=== PATIENT | female | born 1950 | race Caucasian/White ===

== ENCOUNTER 2017-08-30 14:17 | Inpatient (IN) ==
[2017-08-30 15:24] LABS: Basophils % 0.4 %; Eosinophils # 0.1 K/mcL (0.0-0.6); Eosinophils % 1.4 %; Hemoglobin 14.4 g/dL (11.5-15.4); Immature Granulocytes % 0.4 % (0-4); Immature Platelets 4.6 % (1.1-6.1); Lymphocytes # 2.8 K/mcL (0.6-4.6); Lymphocytes % 38.6 %; Mean Corpuscular Hemoglobin 29.7 pg (28.0-33.3); Mean Corpuscular Volume 92.8 fL (83.0-100.0); Mean Platelet Volume 10.7 fL (9.4-12.4); Monocytes # 0.5 K/mcL (0.0-1.3); Monocytes % 7.3 %; Neutrophils # 3.8 K/mcL (1.6-8.9); Platelet Count 269 K/mcL (140-400); Red Blood Count 4.85 M/mcL (3.82-4.97); Red Cell Distribution Width 12.9 % (11.5-14.5); Segmented Neutrophils % 51.9 %
[2017-08-30 15:35] LABS: Calcium 10.3 mg/dL (8.6-10.8); Potassium 4.8 mEq/L (3.5-4.5)
[2017-08-30] MEDS ORDERED: Ondansetron 4 MG/2 ML VIAL IVP ONE (16:06)
[2017-08-30] MEDS ORDERED: Aspirin 325 MG TABLET PO ONE (17:24)
--- NOTE | 2017-08-30 18:17 | Emergency Department Note ---
Disposition Clinical Impression: Dizziness, CRISTIAN (acute kidney injury), Dehydration UTI (urinary tract infection) Qualifiers: Urinary tract infection type: acute cystitis Hematuria presence: without hematuria Qualified Code(s): N30.00 - Acute cystitis without hematuria Disposition: Admitted As Inpatient Condition: Good Time of Disposition: 18:59 Dizziness HPI - General Chief Complaint: ED Dizziness Stated Complaint: dizziness Time Seen by Provider: 08/30/17 15:22 Source: patient Mode of arrival: ambulatory Limitations: no limitations Nursing Notes Reviewed: Yes Vital Signs Reviewed: Yes - History of Present Illness HPI Narrative: Patient presents to the ED with the chief complaint of dizziness. Patient reports that she has had dizziness previously and has been seen by her primary care physician for this. She states that she normally gets symptoms when she stands up too fast or moves too fast and then this lasted for several weeks but resolved. She states that she had been fine for her 6 weeks until one week ago when she started having recurrence of the symptoms. She states that initially they presented like they had previously with a feeling of lightheadedness or floating on a cloud whenever she was moving. However, she states that symptoms have been constant for the last week, which is unusual for her. She reports intermittently feeling very nauseated when these symptoms come on, which is also new and has vomited multiple times. She also states that she has been falling to the right and stumbling when she tries to walk. States it does not happen every time but only happens in the symptoms get really bad. She reports if she lays completely still, the symptoms will go away. She does have some changes in her vision at times. 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 Did not require operative management and has resolved. She was left with no focal deficits. She states that she does feels like something is wrong. - Related Data Home Medications Medication Instructions Recorded Confirmed BuPROPion [Wellbutrin] 150 mg PO QAM 07/20/15 02/04/17 Duloxetine [Cymbalta] 60 mg PO QAM 07/20/15 02/04/17 Alendronate Sodium [Fosamax] 70 mg PO WE 12/08/15 02/04/17 Cholecalciferol (Vitamin D3) 1,000 unit PO QAM 12/08/15 02/04/17 [Vitamin D3] TraMADol [Ultram] 50 mg PO TID PRN 12/08/15 02/04/17 Albuterol Sulfate [Albuterol 2 puff IH Q4HR PRN 05/29/16 02/04/17 Inhaler] BuPROPion [Wellbutrin] 75 mg PO HS 05/29/16 02/04/17 Cyanocobalamin (Vitamin B-12) 1,000 mcg SL WE 05/29/16 02/04/17 [Vitamin B-12] Dicyclomine [Bentyl] 20 mg PO QID 05/29/16 02/04/17 Esomeprazole Magnesium 40 mg PO DAILY 05/29/16 02/04/17 Ferrous Sulfate [Iron Supplement] 325 mg PO DAILY 05/29/16 02/04/17 Fluticasone Propionate Nasal 1 spr NS DAILY PRN 05/29/16 02/04/17 [Flonase] Lactobacillus Acidophilus 1 tab PO BID 05/29/16 02/04/17 [Acidophilus] Lovastatin [Mevacor] 20 mg PO HS 05/29/16 02/04/17 Lysine [l-Lysine] 500 mg PO DAILY 05/29/16 02/04/17 Metoprolol [Lopressor] 25 mg PO DAILY 05/29/16 02/04/17 Potassium Chloride [K-Tab ER] 20 meq PO DAILY 05/29/16 02/04/17 Previous Rx's Medication Instructions Recorded Lisinopril [Zestril] 5 mg PO DAILY tablet 12/14/15 Docusate [Colace] 100 mg PO BID #30 capsule 06/03/16 Ondansetron ODT [Zofran ODT] 4 mg PO Q6H PRN #30 tab.rapdis 06/03/16 cephALEXin [Keflex] 500 mg PO QID #28 capsule 06/17/16 Allergies Allergy/AdvReac Type Severity Reaction Status Date / Time latex Allergy Rash Verified 08/30/17 14:28 levofloxacin [From Levaquin] Allergy Cramping Verified 08/30/17 14:28 of the Muscles meperidine [From Demerol] Allergy Hives Verified 08/30/17 14:28 Sulfa (Sulfonamide Allergy Rash Verified 08/30/17 14:28 Antibiotics) clarithromycin AdvReac Diarrhea Verified 08/30/17 14:28 ezetimibe [From Vytorin] AdvReac Diarrhea Verified 08/30/17 14:28 lansoprazole [From Prevacid] AdvReac Diarrhea Verified 08/30/17 14:28 mirtazapine AdvReac Diarrhea Verified 08/30/17 14:28 omeprazole [From Prilosec] AdvReac Diarrhea Verified 08/30/17 14:28 pantoprazole [From Protonix] AdvReac Diarrhea Verified 08/30/17 14:28 pravastatin AdvReac See Verified 08/30/17 14:28 Comments rosuvastatin [From Crestor] AdvReac See Verified 08/30/17 14:28 Comments simvastatin [From Vytorin] AdvReac Diarrhea Verified 08/30/17 14:28 Anti-Acid Medications AdvReac Diarrhea Uncoded 08/30/17 14:28 All systems ED: reviewed and negative except as stated. Constitutional: Denies: fever, chills Eyes: Reports: vision change Cardiovascular: Denies: chest pain Respiratory: Denies: dyspnea Gastrointestinal: Reports: nausea, vomiting. Denies: abdominal pain Musculoskeletal: Denies: neck pain Neurological: Reports: weakness, abnormal gait, vertigo. Denies: headache Endocrine: Reports: fatigue Past Medical History - Past Medical History Attestation: Yes The following information was validated with the patient. Source: patient Medical history: Reports: arthritis, CVA, DVT, fibromyalgia, GERD, hyperlipidemia, hypertension, renal disease, other Surgical history: Reports: appendectomy, cholecystectomy, hysterectomy, sinus surgery, other Psychiatric history: Reports: anxiety, depression FILM LIBRARIAN history: Reports: no FILM LIBRARIAN history - Social History Smoking Status: Never smoker Smokeless Tobacco Status: No Alcohol use: Reports: occasionally Drug use: Reports: none Physical Exam - General Limitations: no limitations General appearance: alert, in no apparent distress - Head Head exam: atraumatic, normocephalic, normal inspection - Eye Eye exam: Present: normal appearance, PERRL, EOMI, nystagmus (horizontal to the patients right, does induce symptoms) - ENT ENT exam: normal exam, normal oropharynx, mucous membranes moist - Neck Neck exam: Present: normal inspection, full ROM, trachea midline - Chest Chest inspection: Present: normal inspection, symmetric chest wall rise - Respiratory Respiratory exam: Present: normal lung sounds bilaterally - Cardiovascular Cardiovascular exam: Present: regular rate, normal rhythm, normal heart sounds - Abdominal Exam Abdominal exam: Present: soft, Non-Tender. Absent: tenderness, distention, guarding, rebound, rigidity - Extremities Exam Extremities exam: Present: normal inspection, full ROM. Absent: tenderness, pedal edema - Back Exam Back exam: Present: normal inspection, full ROM. Absent: tenderness - Neurological Exam Neurological exam: Present: alert, oriented X3, CN II-XII intact - Expanded Neurological Exam Patient oriented to: Present: person, place, time Speech: Present: fluid speech Cranial nerves: EOM function (II, III, IV, ): Normal, facial sensation (V): Normal, facial palsy (VII): Normal, spinal accessory function (XI): Normal, tongue deviation (XII): Normal Cerebellar function: finger to nose: Normal Motor strength - LUE: 5/5 Motor strength - RUE: 5/5 Motor strength - LLE: 5/5 Motor strength - RLE: 5/5 Upper motor neuron exam: boom neglect: Absent bilaterally, pronator drift: Absent bilaterally Sensory exam upper extremity: light touch: Normal Sensory exam lower extremity: light touch: Normal Coma Scale Eye Opening: Spontaneous Coma Scale Motor Response: Obeys Commands Coma Scale Verbal Response: Oriented Coma Scale Total: 15 - Psychiatric Psychiatric exam: Present: normal affect, normal mood - Skin Skin exam: Present: warm, dry, intact, normal color Course Course Narrative: Patient presenting with intermittent dizziness, nausea, vomiting, and gait disturbances. No acute deficits. We will CT her head. We will likely admit for MRI, MRA Vital Signs Temperature 97.6 F 08/30/17 14:23 Pulse Rate 106 08/30/17 14:23 Respiratory Rate 20 08/30/17 14:23 Blood Pressure 111/77 08/30/17 14:23 O2 Sat by Pulse Oximetry 100 08/30/17 14:23 Temperature 97.6 F 08/30/17 14:23 Pulse Rate 86 08/30/17 18:34 Respiratory Rate 18 08/30/17 19:06 Blood Pressure 135/85 08/30/17 19:06 O2 Sat by Pulse Oximetry 96 08/30/17 18:34 Oxygen Delivery Oxygen Delivery Room Air Dizziness - Lab Data Result diagrams: 08/30/17 15:11 08/30/17 15:11 Lab Results 08/30/17 08/30/17 08/30/17 Range/Units 15:11 15:11 15:11 WBC 7.3 (4.3-11.1) K/mcL RBC 4.85 (3.82-4.97) M/mcL Hgb 14.4 (11.5-15.4) g/dL Hct 45.0 H (35.3-44.9) % MCV 92.8 (83.0-100.0) fL MCH 29.7 (28.0-33.3) pg MCHC 32.0 (31.6-35.5) g/dL RDW 12.9 (11.5-14.5) % Plt Count 269 (140-400) K/mcL MPV 10.7 (9.4-12.4) fL Immature Gran % 0.4 (0-4) % Seg Neutrophils % 51.9 % Lymphocytes % 38.6 % Monocytes % 7.3 % Eosinophils % 1.4 % Basophils % 0.4 % Neutrophils # 3.8 (1.6-8.9) K/mcL Lymphocytes # 2.8 (0.6-4.6) K/mcL Monocytes # 0.5 (0.0-1.3) K/mcL Eosinophils # 0.1 (0.0-0.6) K/mcL Basophils # 0.0 (0.0-0.2) K/mcL Immature Plt Fraction 4.6 (1.1-6.1) % Sodium 138 (136-145) mEq/L Potassium 4.8 H (3.5-4.5) mEq/L Chloride 107 (98-109) mEq/L Carbon Dioxide 21 (19-29) mEq/L BUN 62 H (7-20) mg/dL Creatinine 2.51 H (0.57-1.11) mg/dL Est GFR ( Amer) 23 L (> 60) Est GFR (Non-Af Amer) 19 L (> 60) BUN/Creatinine Ratio 25 (6-26) Glucose 138 H (70-99) mg/dL Calculated Osmolality 306 H (280-300) Calcium 10.3 (8.6-10.8) mg/dL Troponin I 0.01 (0-0.03) ng/mL Urine Color (Yellow) Urine Clarity (Clear) Urine pH (5.0-8.0) pH Units Ur Specific [place] (1.010-1.025) Urine Protein (Neg-Trace) mg/dL Urine Glucose (UA) (Normal) mg/dL Urine Ketones (Negative) mg/dL Urine Blood (Negative) Urine Nitrite (Negative) Urine Bilirubin (Negative) Urine Urobilinogen (Normal) mg/dL Ur Leukocyte Esterase (Negative) Urine Microscopic RBC (0-3) per hpf Urine Microscopic WBC (0-3) per hpf Ur Squamous Epith Cells (None-Few) per lpf Urine Bacteria (None-Few) per hpf Hyaline Casts (None-Few) per lpf Ur Culture Indicated? (NO) 08/30/17 Range/Units 18:41 WBC (4.3-11.1) K/mcL RBC (3.82-4.97) M/mcL Hgb (11.5-15.4) g/dL Hct (35.3-44.9) % MCV (83.0-100.0) fL MCH (28.0-33.3) pg MCHC (31.6-35.5) g/dL RDW (11.5-14.5) % Plt Count (140-400) K/mcL MPV (9.4-12.4) fL Immature Gran % (0-4) % Seg Neutrophils % % Lymphocytes % % Monocytes % % Eosinophils % % Basophils % % Neutrophils # (1.6-8.9) K/mcL Lymphocytes # (0.6-4.6) K/mcL Monocytes # (0.0-1.3) K/mcL Eosinophils # (0.0-0.6) K/mcL Basophils # (0.0-0.2) K/mcL Immature Plt Fraction (1.1-6.1) % Sodium (136-145) mEq/L Potassium (3.5-4.5) mEq/L Chloride (98-109) mEq/L Carbon Dioxide (19-29) mEq/L BUN (7-20) mg/dL Creatinine (0.57-1.11) mg/dL Est GFR ( Amer) (> 60) Est GFR (Non-Af Amer) (> 60) BUN/Creatinine Ratio (6-26) Glucose (70-99) mg/dL Calculated Osmolality (280-300) Calcium (8.6-10.8) mg/dL Troponin I (0-0.03) ng/mL Urine Color Yellow (Yellow) Urine Clarity Cloudy A (Clear) Urine pH 5.5 (5.0-8.0) pH Units Ur Specific [place] 1.022 (1.010-1.025) Urine Protein Negative (Neg-Trace) mg/dL Urine Glucose (UA) Normal (Normal) mg/dL Urine Ketones Negative (Negative) mg/dL Urine Blood Negative (Negative) Urine Nitrite Positive A (Negative) Urine Bilirubin Negative (Negative) Urine Urobilinogen Normal (Normal) mg/dL Ur Leukocyte Esterase Small H (Negative) Urine Microscopic RBC 0-3 (0-3) per hpf Urine Microscopic WBC 5-15 H (0-3) per hpf Ur Squamous Epith Cells Many H (None-Few) per lpf Urine Bacteria Moderate H (None-Few) per hpf Hyaline Casts None Seen (None-Few) per lpf Ur Culture Indicated? YES A (NO) S.B.A.R. - S.B.A.R. Situation: Demographics, MOA Background: Presenting Complaint, Relevant PMH, Meds, & Allergies Assessment: Vital Signs, Course and respsone to treatment, Exam Concerns, Patient/Family Expectation, Pertinant Lab Results, Outstanding Labs Recommendation: Barrier(s) to disposition, Recommendation based on pending studies, treatments, or consults S.B.A.R. Report Given to: Dr. Merino Attestation Statement - Attestation Attestation: I examined this patient and my medical decision-making was reviewed with the Resident Physician, Dr. Cook. I agree with the documented findings, disposition and treatment plan as described except to the extent set forth below. Patient is a 66-year-old female with a history of prior acute CVA from intracranial hemorrhage in the past who presents to the emergency department with dizziness that she has been experiencing for the past week which is constant in nature feels, she describes it as a movement sensation, that worsens with head turning and positional changes. Patient has a history of orthostatic dizziness or lightheadedness that she has been treated for in the past and had been doing quite well in a symptomatic for about the past 6 weeks until one week ago. Patient states this has been associated with at times nausea and vomiting and generally decreased by mouth intake. Patient denies any headaches, no chest pain pressure or heaviness, no palpitations, no abdominal pain or back pain, no difficulty ambulating or focal weakness or numbness. Speech is clear with no facial droop. I agree patient's physical exam findings as documented. Patient's hemodynamically stable on arrival to the emergency department. Patient was started on IV fluids, and sent for CT head as well as laboratory evaluation, EKG and chest x-ray. Patient's imaging studies were all unremarkable. Patient without ischemic change on her EKG. Patient with some acute kidney injury based on an elevated creatinine compared to her baseline likely due to dehydration. Also found presence of a urinary tract infection which we will treat with antibiotics. At this time patient's neurologic exam has been stable over time. Concerned with patient's symptoms and feels she would benefit from MRI, and further neurologic workup. Patient's symptoms have been constant for over 7 days so she is not a candidate for acute CVA alert or TPA. Patient agrees to admission , continued hydration, IV antibiotics. Case was discussed with the hospitalist who accepted patient for admission.
[2017-08-30 18:47] LABS: Bilirubin,Urine Negative (Negative); Blood,Urine Negative (Negative); Clarity,Urine Cloudy (Clear); Color,Urine Yellow (Yellow); Glucose,Urine (UA) Normal (Normal); Ketones,Urine Negative (Negative); Leukocyte Esterase,Urine Small (Negative); Nitrite,Urine Positive (Negative); PH,Urine 5.5 pH Units (5.0-8.0); Protein,Urine Negative (Neg-Trace); Specific Gravity,Urine 1.022 (1.010-1.025); Urobilinogen,Urine Normal (Normal)
[2017-08-30 18:49] LABS: Bacteria,Urine Moderate per hpf (None-Few); Hyaline Casts,Urine None Seen per lpf (None-Few); RBC,Urine 0-3 per hpf (0-3); Squamous Epithelial Cell,Urine Many per lpf (None-Few)
[2017-08-30] MEDS ORDERED: 0.9 % Sodium Chloride 1,000 ML IVC ONE (21:06)
[2017-08-30] MEDS ORDERED: 0.9 % Sodium Chloride 500 ML IVC ONE (21:07)
[2017-08-30] MEDS ORDERED: Fluticasone Propionate Nasal 50 MCG/SPRAY BOTTLE NS PRN (21:20)
--- NOTE | 2017-08-30 21:28 | Internal Med History&Physical ---
Date of Encounter: 08/30/17 Time of Encounter: 21:24 Assessment and Plan (1) Dizziness Current visit: Yes Status: Acute Patient symptoms are more suggestive of dizziness rather than lightheadedness. Mentions symptoms of gate unsteadiness, spinning sensation, nausea for one week. Would rule out posterior circulation ischemia/stroke. We will get MRI/ MRA of the head and neck, echocardiogram carotid Doppler, physical therapy, occupational therapy to see the patient. (2) CRISTIAN (acute kidney injury) Current visit: Yes Status: Acute Hydrate. (3) UTI (urinary tract infection) Current visit: Yes Status: Acute Ceftriaxone Qualifiers: Urinary tract infection type: acute cystitis Hematuria presence: without hematuria Qualified Code(s): N30.00 - Acute cystitis without hematuria Internal Medicine - H&P: HPI Chief complaint: dizziness History of present illness: Ms. Gomes is a 66 year old female presents to the emergency room today with the main complain of dizziness. For the past week patient has been feeling dizzy she describes his room spinning sensation. She has also been feeling unsteady, has to hold on landers during ambulation. She was having nausea throughout the past week and has not been eating well. She denies any focal weakness. No tingling or numbness in any extremity facial symmetry or speech sluriness. Past Med Surg Social Fam HX - Past Medical History Medical history: arthritis, CVA, DVT, fibromyalgia, GERD, hyperlipidemia, hypertension, renal disease, other Psychiatric history: anxiety, depression - Past Surgical History Surgical History: appendectomy, cholecystectomy, hysterectomy, sinus surgery, other - Social History Smoking Status: Never smoker Smokeless Tobacco Status: No Alcohol use: occasionally Drug use: none - Family History Mother Family Member Ethnicity: Non- Living Status: Hx Family Cardiac Disorders: Yes Hx Family Respiratory Disorders: Yes Hx Family Cancer: No Hx Family GI Disorders: No Hx Family Endocrine Disorder: No Hx Family Neuromuscular Disorders: No Hx Family Neurologic Disorders: No Hx Family Autoimmune Disorders: No Internal Medicine - H&P: Meds BuPROPion [Wellbutrin] 150 mg PO QAM 07/20/15 [History] Duloxetine [Cymbalta] 60 mg PO QAM 07/20/15 [History] Alendronate Sodium [Fosamax] 70 mg PO WE 12/08/15 [History] Cholecalciferol (Vitamin D3) [Vitamin D3] 1,000 unit PO QAM 12/08/15 [History] TraMADol [Ultram] 50 mg PO TID PRN 12/08/15 [History] Lisinopril [Zestril] 5 mg PO DAILY tablet 12/14/15 [Rx] Albuterol Sulfate [Albuterol Inhaler] 2 puff IH Q4HR PRN 05/29/16 [History] BuPROPion [Wellbutrin] 75 mg PO HS 05/29/16 [History] Cyanocobalamin (Vitamin B-12) [Vitamin B-12] 1,000 mcg SL WE 05/29/16 [History] Dicyclomine [Bentyl] 20 mg PO QID 05/29/16 [History] Esomeprazole Magnesium 40 mg PO DAILY 05/29/16 [History] Ferrous Sulfate [Iron Supplement] 325 mg PO DAILY 05/29/16 [History] Fluticasone Propionate Nasal [Flonase] 1 spr NS DAILY PRN 05/29/16 [History] Lactobacillus Acidophilus [Acidophilus] 1 tab PO BID 05/29/16 [History] Lovastatin [Mevacor] 20 mg PO HS 05/29/16 [History] Lysine [l-Lysine] 500 mg PO DAILY 05/29/16 [History] Metoprolol [Lopressor] 25 mg PO DAILY 05/29/16 [History] Potassium Chloride [K-Tab ER] 20 meq PO DAILY 05/29/16 [History] Docusate [Colace] 100 mg PO BID #30 capsule 06/03/16 [Rx] Ondansetron ODT [Zofran ODT] 4 mg PO Q6H PRN #30 tab.rapdis 06/03/16 [Rx] cephALEXin [Keflex] 500 mg PO QID #28 capsule 06/17/16 [Rx] 3 Allergy/AdvReac Type Severity Reaction Status Date / Time latex Allergy Rash Verified 08/30/17 14:28 levofloxacin [From Levaquin] Allergy Cramping Verified 08/30/17 14:28 of the Muscles meperidine [From Demerol] Allergy Hives Verified 08/30/17 14:28 Sulfa (Sulfonamide Allergy Rash Verified 08/30/17 14:28 Antibiotics) clarithromycin AdvReac Diarrhea Verified 08/30/17 14:28 ezetimibe [From Vytorin] AdvReac Diarrhea Verified 08/30/17 14:28 lansoprazole [From Prevacid] AdvReac Diarrhea Verified 08/30/17 14:28 mirtazapine AdvReac Diarrhea Verified 08/30/17 14:28 omeprazole [From Prilosec] AdvReac Diarrhea Verified 08/30/17 14:28 pantoprazole [From Protonix] AdvReac Diarrhea Verified 08/30/17 14:28 pravastatin AdvReac See Verified 08/30/17 14:28 Comments rosuvastatin [From Crestor] AdvReac See Verified 08/30/17 14:28 Comments simvastatin [From Vytorin] AdvReac Diarrhea Verified 08/30/17 14:28 Anti-Acid Medications AdvReac Diarrhea Uncoded 08/30/17 14:28 All Systems PM: A 10-system review of systems was performed and is negative for pertinent findings except as documented above in the HPI. Review of systems: 10 point review of systems is negative except for HPI - Constitutional Vitals: Temp Pulse Resp BP Pulse Ox 97.6 F 86 18 135/85 96 08/30/17 14:23 08/30/17 18:34 08/30/17 19:06 08/30/17 19:06 08/30/17 18:34 Exam: Gen.: patient is alert oriented times 3 not in distress. Cardiac: normal S1 S2 no additional sounds or murmurs chest: fair air entry. no active wheezing. No crackles or bronchial breathing. abdomen: soft nontender nondistended normal bowel sounds neuro: no focal deficits. slight horizontal nystagmus on extreme lateral gaze. some sluggishness with finer to nose and heal to meneses test Internal Med - H&P Results - Labs CBC & Chem 7: 08/30/17 15:11 08/30/17 15:11
[2017-08-30] MEDS: *HR* Heparin 5,000 UNIT/ML VIAL SQ SCH (23:18)
[2017-08-31 02:13] LABS: Basophils % 0.5 %; Eosinophils # 0.1 K/mcL (0.0-0.6); Eosinophils % 1.7 %; Hematocrit 38.6 % (35.3-44.9); Immature Granulocytes % 0.5 % (0-4); Lymphocytes % 40.1 %; Mean Corpuscular HGB Conc 32.4 g/dL (31.6-35.5); Mean Corpuscular Hemoglobin 30.6 pg (28.0-33.3); Mean Corpuscular Volume 94.6 fL (83.0-100.0); Mean Platelet Volume 10.8 fL (9.4-12.4); Monocytes # 0.7 K/mcL (0.0-1.3); Monocytes % 9.3 %; Neutrophils # 3.6 K/mcL (1.6-8.9); Platelet Count 212 K/mcL (140-400); Red Blood Count 4.08 M/mcL (3.82-4.97); Red Cell Distribution Width 13.1 % (11.5-14.5); Segmented Neutrophils % 47.9 %
[2017-08-31 02:23] LABS: Hemoglobin 12.5 g/dL (11.5-15.4)
[2017-08-31 02:35] LABS: Magnesium 1.6 mg/dL (1.6-2.6); Potassium 4.4 mEq/L (3.5-4.5)
[2017-08-31 02:41] LABS: Calcium 8.5 mg/dL (8.6-10.8)
[2017-08-31] MEDS: *HR* Heparin 5,000 UNIT/ML VIAL SQ SCH ×3 (05:48→20:13)
[2017-08-31] MEDS: 0.9 % Sodium Chloride 1,000 ML IVC SCH ×2 (05:49→14:25)
[2017-08-31] MEDS: traMADol 50 MG TABLET PO PRN ×2 (07:48→19:58)
[2017-08-31] MEDS: Aspirin Enteric Coated 81 MG Tablet PO SCH (07:49)
[2017-08-31] MEDS ORDERED: Famotidine 20 MG/2 ML VIAL IVP SCH (09:00)
[2017-08-31] MEDS ORDERED: Ondansetron 4 MG/2 ML VIAL IVP PRN (11:54)
--- NOTE | 2017-08-31 14:09 | Neurology - Consult Note ---
<Lars Ventura - Last Filed: 08/31/17 13:55> Date of Encounter: 08/31/17 Time of Encounter: 13:30 Assessment and Plan (1) Vestibular neuronitis Current Visit: Yes Status: Acute Patient describes having 7 days of continued vertigo when standing, walking, or change in position. She denies having any new hearing loss, tinnitus, fullness in her ears. Physical exam revealed horizontal nystagmus to left and reproduced dizziness to the right. MRI and MRA negative for acute findings. Echo showed mild diastolic dysfunction, and preliminary report for carotid duplex showed bilateral ICA 60-79% stenosis. Patient's description of symptoms and physical findings suggest a positional vertigo and duration of symptoms just this vestibular neuronitis. Patient has been improving somewhat, though will likely have ongoing dizziness of extended duration. Treat symptomatically for nausea and dizziness Recommend steroids Qualifiers: Laterality: unspecified laterality Qualified Code(s): H81.20 - Vestibular neuronitis, unspecified ear History of Present Illness Chief complaint: dizziness HPI: Ms. 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 She reports the episodes started when packing for moving one week ago. She states that the episodes of dizziness began whenever she tries to stand up throughout each day. She states she is able to stand up and walk 20 feet before becoming lightheaded/dizzy getting nauseous with emesis followed by diarrhea whenever she tries to eat. She describes episodes of lightheadedness/dizziness as a spinning sensation in which she immediately has to sit or lie down. She finds when she tries to raise herself, she is always leaning towards the right. The only other time she has these symptoms is when she rolls over quickly in bed. The nausea comes because of the dizziness has been occurring and denies having any blood in her emesis. She states that she has also had diarrhea whenever she tries to eat or drink anything which has caused her to reportedly not had anything to eat in one week. She decided to present to the hospital yesterday as she felt that leaving her sisters to do all the work of moving. She admits to chronic hearing loss that is worse on the left than the right that is due to repeated music concerts when she was younger (her ex- was an abandoned and she was at a concert every weekend). She denies having any fullness in her ears and denies having any recent significant changes of her hearing. She denies any ringing sensation in her ears. Past Med Surg Social Fam HX - Past Medical History Medical history: arthritis, CVA, DVT, fibromyalgia, GERD, hyperlipidemia, hypertension, renal disease, other Psychiatric history: anxiety, depression - Past Surgical History Surgical History: appendectomy, cholecystectomy, hysterectomy, sinus surgery, other - Social History Smoking Status: Never smoker Smokeless Tobacco Status: No Alcohol use: occasionally Drug use: none - Family History Mother Family Member Ethnicity: Non- Living Status: Hx Family Cardiac Disorders: Yes Hx Family Respiratory Disorders: Yes Hx Family Cancer: No Hx Family GI Disorders: No Hx Family Endocrine Disorder: No Hx Family Neuromuscular Disorders: No Hx Family Neurologic Disorders: No Hx Family Autoimmune Disorders: No Medications and Allergies BuPROPion [Wellbutrin] 150 mg PO QAM 07/20/15 [History] Duloxetine [Cymbalta] 60 mg PO QAM 07/20/15 [History] Alendronate Sodium [Fosamax] 70 mg PO WE 12/08/15 [History] Cholecalciferol (Vitamin D3) [Vitamin D3] 1,000 unit PO QAM 12/08/15 [History] TraMADol [Ultram] 25 - 50 mg PO BID PRN 12/08/15 [History] Lisinopril [Zestril] 5 mg PO DAILY tablet 12/14/15 [Rx] Albuterol Sulfate [Albuterol Inhaler] 2 puff IH Q4HR PRN 05/29/16 [History] BuPROPion [Wellbutrin] 75 mg PO HS 05/29/16 [History] Cyanocobalamin (Vitamin B-12) [Vitamin B-12] 1,000 mcg SL DAILY 05/29/16 [ History] Dicyclomine [Bentyl] 20 mg PO QID 05/29/16 [History] Esomeprazole Magnesium 40 mg PO DAILY 05/29/16 [History] Ferrous Sulfate [Iron Supplement] 325 mg PO DAILY 05/29/16 [History] Fluticasone Propionate Nasal [Flonase] 1 spr NS DAILY PRN 05/29/16 [History] Lactobacillus Acidophilus [Acidophilus] 1 tab PO BID 05/29/16 [History] Lysine [l-Lysine] 500 mg PO DAILY 05/29/16 [History] Potassium Chloride [K-Tab ER] 20 meq PO DAILY 05/29/16 [History] Ondansetron ODT [Zofran ODT] 4 mg PO Q6H PRN #30 tab.rapdis 06/03/16 [Rx] Evolocumab [Repatha Pushtronex] 420 mg QMONTH 08/31/17 [History] Sucralfate [Carafate] 1 tab PO QID 08/31/17 [History] 3 Allergy/AdvReac Type Severity Reaction Status Date / Time latex Allergy Rash Verified 08/31/17 10:43 levofloxacin [From Levaquin] Allergy Cramping Verified 08/31/17 10:43 of the Muscles meperidine [From Demerol] Allergy Hives Verified 08/31/17 10:43 Sulfa (Sulfonamide Allergy Rash Verified 08/31/17 10:43 Antibiotics) clarithromycin AdvReac Diarrhea Verified 08/31/17 10:43 ezetimibe [From Vytorin] AdvReac Diarrhea Verified 08/31/17 10:43 lansoprazole [From Prevacid] AdvReac Diarrhea Verified 08/31/17 10:43 mirtazapine AdvReac Diarrhea Verified 08/31/17 10:43 omeprazole [From Prilosec] AdvReac Diarrhea Verified 08/31/17 10:43 pantoprazole [From Protonix] AdvReac Diarrhea Verified 08/31/17 10:43 pravastatin AdvReac See Verified 08/31/17 10:43 Comments rosuvastatin [From Crestor] AdvReac See Verified 08/31/17 10:43 Comments simvastatin [From Vytorin] AdvReac Diarrhea Verified 08/31/17 10:43 Anti-Acid Medications AdvReac Diarrhea Uncoded 08/31/17 10:43 Review of Systems: Gen: Denies fever, denies chills, denies weakness CV: Denies chest pain, denies palpitations Resp: Denies shortness of breath GI: Reports nausea and vomiting as per history of present illness, denies abdominal pain, denies constipation, reports diarrhea as per history of present illness Neuro: Denies headache, denies confusion, denies focal weakness, denies numbness , denies tingling, denies vision changes, denies hearing changes, denies tinnitus, reports dizziness as per history of present illness Physical Examination - Vital Signs Vital Signs: Initial Vital Signs Temp Pulse Resp BP Pulse Ox 97.6 F 106 20 111/77 100 08/30/17 14:23 08/30/17 14:23 08/30/17 14:23 08/30/17 14:23 08/30/17 14:23 - Exam Exam: General: Cooperative, pleasant, no acute distress, alert and oriented 3, answers questions appropriately HEENT: Normocephalic, atraumatic, neck supple, trachea midline, Conjunctiva pink , sclera anicteric, EOMI, PERRL, oral mucosa moist, no orophargeal erythema or exudates Respiratory: No accessory muscle usage, clear to auscultation bilaterally, no wheezes/rhonchi/rales appreciated Cardiovascular: Regular rate and rhythm, S1 and S2 present, no murmurs/rubs/ gallops/clicks appreciated Extremities: No calf tenderness, noncyanotic, no pedal edema appreciated, warm, lower extremity pulses palpable and symmetrical Neurological: Alert and oriented 3, no facial droop, no focal deficits, cranial nerves II through XII grossly intact, strength 5/5 upper and lower extremities bilaterally, decreased sensation in right medial leg (chronic), DTRs 2+/4 in Achilles, patellar, brachioradialis, biceps, and triceps bilaterally, right lateral motion of her eyes reproduces her dizziness, horizontal nystagmus with left lateral movement of her eyes Skin: Dry, intact, normal color Results - Laboratory Findings CBC and BMP: 08/31/17 01:35 08/31/17 01:35 Abnormal lab findings: Abnormal lab results Chloride 112 mEq/L (98-109) H 08/31/17 01:35 Carbon Dioxide 17 mEq/L (19-29) L 08/31/17 01:35 BUN 56 mg/dL (7-20) H 08/31/17 01:35 Creatinine 1.91 mg/dL (0.57-1.11) H 08/31/17 01:35 Est GFR ( Amer) 32 (> 60) L 08/31/17 01:35 Est GFR (Non-Af Amer) 26 (> 60) L 08/31/17 01:35 BUN/Creatinine Ratio 29 (6-26) H 08/31/17 01:35 Calculated Osmolality 301 (280-300) H 08/31/17 01:35 Calcium 8.5 mg/dL (8.6-10.8) L D 08/31/17 01:35 Urine Clarity Cloudy (Clear) A 08/30/17 18:41 Urine Nitrite Positive (Negative) A 08/30/17 18:41 Ur Leukocyte Esterase Small (Negative) H 08/30/17 18:41 Urine Microscopic WBC 5-15 per hpf (0-3) H 08/30/17 18:41 Ur Squamous Epith Cells Many per lpf (None-Few) H 08/30/17 18:41 Urine Bacteria Moderate per hpf (None-Few) H 08/30/17 18:41 Ur Culture Indicated? YES (NO) A 08/30/17 18:41 Consult Discharge Plan - Plan Referrals: Juno Mendes DO [Primary Care Provider] - <BethFazalvirgilio - Last Filed: 08/31/17 15:09> Date of Encounter: 08/31/17 Assessment and Plan (1) Vestibular neuronitis Current Visit: Yes Status: Acute I saw and examined the patient with the presence of Dr. Lars Ventura. We discussed the case and reviewed the images together. I agree with his history taking, physical examination, assessment and plan. The patients symptoms and signs suggests peripheral etiology for dizziness associated with significant autonomic symptoms especially vestibular neuronitis due to rather typical course of illness and evolution. Patient is significantly imrproved, has reproducible dizziness when gazing to the right side, with residual gait difficulty. But nausea and vomiting essentially resolved. Work up for central cause is negative. Treatment is largely supportive at present time. Patient is advised that residual unsteady gait or dizziness may presence for few weeks up to few months , but i expect her to continue to improve Qualifiers: Laterality: unspecified laterality Qualified Code(s): H81.20 - Vestibular neuronitis, unspecified ear History of Present Illness HPI: Ms. Gomes is a 66 year old female All Systems: A 10-system review of systems was performed and is negative for pertinent findings except as documented above in the HPI. Physical Examination - Vital Signs Vital Signs: Initial Vital Signs Temp Pulse Resp BP Pulse Ox 97.6 F 106 20 111/77 100 08/30/17 14:23 08/30/17 14:23 08/30/17 14:23 08/30/17 14:23 08/30/17 14:23 Results - Laboratory Findings CBC and BMP: 08/31/17 01:35 08/31/17 01:35 Abnormal lab findings: Abnormal lab results Chloride 112 mEq/L (98-109) H 08/31/17 01:35 Carbon Dioxide 17 mEq/L (19-29) L 08/31/17 01:35 BUN 56 mg/dL (7-20) H 08/31/17 01:35 Creatinine 1.91 mg/dL (0.57-1.11) H 08/31/17 01:35 Est GFR ( Amer) 32 (> 60) L 08/31/17 01:35 Est GFR (Non-Af Amer) 26 (> 60) L 08/31/17 01:35 BUN/Creatinine Ratio 29 (6-26) H 08/31/17 01:35 Calculated Osmolality 301 (280-300) H 08/31/17 01:35 Calcium 8.5 mg/dL (8.6-10.8) L D 08/31/17 01:35 Urine Clarity Cloudy (Clear) A 08/30/17 18:41 Urine Nitrite Positive (Negative) A 08/30/17 18:41 Ur Leukocyte Esterase Small (Negative) H 08/30/17 18:41 Urine Microscopic WBC 5-15 per hpf (0-3) H 08/30/17 18:41 Ur Squamous Epith Cells Many per lpf (None-Few) H 08/30/17 18:41 Urine Bacteria Moderate per hpf (None-Few) H 08/30/17 18:41 Ur Culture Indicated? YES (NO) A 08/30/17 18:41
--- NOTE | 2017-08-31 17:08 | Internal Med Progress Note ---
<Giorgio Delgado - Last Filed: 08/31/17 17:06> Date of Encounter: 08/31/17 Time of Encounter: 08:30 - Assessment and plan (1) Vestibular neuronitis Current Visit: Yes Status: Acute Assessment and plan: Vestibular neuronitis likely secondary to viral infection previously. Physical exam revealed horizontal nystagmus to the left and reproduce dizziness to the right MRI and MRA are negative for acute findings, echo showed mild diastolic dysfunction with incidental PFO Preliminary report for carotid duplex showed bilateral ICA 60-79% stenosis Neurology recommended symptomatic treatment for nausea and dizziness Qualifiers: Laterality: unspecified laterality Qualified Code(s): H81.20 - Vestibular neuronitis, unspecified ear (2) CRISTIAN (acute kidney injury) Current Visit: Yes Status: Acute Assessment and plan: CRISTIAN likely secondary to hypovolemia due to nausea and vomiting. Serum creatinine 1.91, BUN 56, GFR 36 Continue IV fluids at this time, treat symptomatically for nausea and vomiting Patient is being treated for urinary tract infection with ceftriaxone at this time which may help (3) UTI (urinary tract infection) Current Visit: Yes Status: Acute Assessment and plan: White blood cell count down to 7.5 Patient is treated with ceftriaxone day 1 at this time, she has no acute urinary symptoms We will continue treatment Qualifiers: Urinary tract infection type: acute cystitis Hematuria presence: without hematuria Qualified Code(s): N30.00 - Acute cystitis without hematuria (4) DVT prophylaxis Current Visit: Yes Status: Acute Assessment and plan: Subcutaneous heparin - Subjective Interval history: Patient is seen and examined at bedside. She is seated up right in a chair, and she is in good spirits. She says that she is not having many issues today, although she does occasionally have shortness of breath when she gets up to use the restroom. She is still experiencing mild dizziness which is associated with nausea and sometimes vomiting. - Constitutional Vitals: Temp Pulse Resp BP Pulse Ox 98.1 F 77 18 96/78 98 08/31/17 15:52 08/31/17 15:52 08/31/17 15:52 08/31/17 15:52 08/31/17 15:52 General appearance: Present: cooperative, A&O X 3, no acute distress, answers questions appropriately - Head Head exam: Present: atraumatic, normocephalic - Eye Eye exam: Present: PERRL, conjuntiva pink, sclera anicteric Pupils: Present: PERRL - Neck Neck exam general surgery: Present: supple, trachea midline. Absent: lymphadenopathy - Respiratory Respiratory exam: Present: CTAB. Absent: accessory muscle use, rales, rhonchi, wheezes - Cardiovascular Cardiovascular exam: Present: RRR, +S1, +S2. Absent: diastolic murmur, gallop, rubs, systolic murmur - GI/Abdominal GI/Abdominal exam: Present: normal bowel sounds, soft, no peritoneal signs. Absent: distended, tenderness - Extremities Exam Extremities exam: Present: warm, radial pulses palpable and symmetrical. Absent : calf tenderness, cyanotic, pedal edema - Neurological Exam Neurological exam: Present: CN II-XII intact, oriented X3, no focal deficits. Absent: pronater drift, facial droop, speech deficit Additional comments: Patient hyperreflexive DTR right patellar - Skin Skin exam: Present: dry, intact Internal Medicine: Result - Labs CBC & Chem 7: 08/31/17 01:35 08/31/17 01:35 Labs: Short CBC 08/31/17 Range/Units 01:35 WBC 7.5 (4.3-11.1) K/mcL Hgb 12.5 D (11.5-15.4) g/dL Hct 38.6 (35.3-44.9) % Plt Count 212 (140-400) K/mcL Neutrophils # 3.6 (1.6-8.9) K/mcL BMP 08/31/17 01:35 Sodium 138 Potassium 4.4 Chloride 112 H Carbon Dioxide 17 L BUN 56 H Creatinine 1.91 H Glucose 87 Calcium 8.5 L D - ABG Interpretation ABG results: PT/INR, D-dimer D-Dimer 396 ng/mLFEU (0-500) 08/31/17 13:03 - Impressions Impressions Brain MRI 08/31/17 16:06 IMPRESSION: 1. No acute intracranial abnormality. 2. Sequela of mild chronic microvascular ischemic changes. 3. Unremarkable MRA of the head. D/ / 08/31/2017 12:57:10 Robert Fay MD / Avis Dorado Interpreting Provider: Robert Fay MD Head MRA 08/31/17 16:06 IMPRESSION: 1. No acute intracranial abnormality. 2. Sequela of mild chronic microvascular ischemic changes. 3. Unremarkable MRA of the head. D/ /31/2017 12:57:10 Robert Fay MD / Avis Dorado Interpreting Provider: Robert Fay MD Neck MRA 08/31/17 21:01 IMPRESSION: Unremarkable MRA of the neck. D/ /31/2017 13:10:51 Robert Fay MD / earnold Interpreting Provider: Robert Fay MD Echocardiogram 08/31/17 21:23 Impressions: LVEF 60-65%. Normal left ventricular size and systolic function. There is evidence of mild diastolic dysfunction of the left ventricle. Normal right ventricular size and function. Mild tricuspid regurgitation. No pulmonary hypertension. Aneurysmal interatrial septum with positive bubble study suggesting the presence of a PFO. Left Ventricular Wall Motion: Rest Echo Findings All wall segments showed normal motion. Findings: Study Quality * Technically adequate exam. ECG Findings * Normal sinus rhythm. Left Ventricle * LVEF 60-65%. * Normal LV chamber size, wall thickness and function. * Mild left ventricular diastolic dysfunction. Right Ventricle * Normal right ventricular structure and function. Left Atrium * Normal left atrial size. Right Atrium * Normal right atrial size. Aortic Valve * No aortic regurgitation. * Trileaflet aortic valve. * Normal aortic valve structure. * No aortic stenosis. Mitral Valve * Normal mitral valve structure. * No mitral regurgitation. * No mitral stenosis. Tricuspid Valve * Tricuspid valve not well visualized. * Mild tricuspid regurgitation. * Estimated RA pressure is 3 mmHg. * Estimated RVSP is 26 mmHg. * No pulmonary hypertension. Pulmonic Valve * Pulmonic valve is not well visualized. * No pulmonic stenosis. * No pulmonic regurgitation. Pulmonary Artery * Pulmonary artery not well visualized. Aorta * Normally sized aortic root. Pericardium * There is no pericardial effusion present. Interatrial Septum * Aneurysmal interatrial septal. * There is a PFO by agitated saline contrast, IVC * Normal IVC dimensions and inspiratory collapse. Consult Discharge Plan - Plan Referrals: Juno Mendes DO [Primary Care Provider] - <Erik Nur Reanna - Last Filed: 08/31/17 18:21> Date of Encounter: 08/31/17 - Assessment and plan (1) Vestibular neuronitis Current Visit: Yes Status: Acute Qualifiers: Laterality: right Qualified Code(s): H81.21 - Vestibular neuronitis, right ear (2) UTI (urinary tract infection) Current Visit: Yes Status: Acute Qualifiers: Urinary tract infection type: acute cystitis Hematuria presence: without hematuria Qualified Code(s): N30.00 - Acute cystitis without hematuria (3) Hypertension Current Visit: No Status: Acute Qualifiers: Hypertension type: essential hypertension Qualified Code(s): I10 - Essential (primary) hypertension (4) GERD (gastroesophageal reflux disease) Current Visit: No Status: Acute Qualifiers: Esophagitis presence: without esophagitis Qualified Code(s): K21.9 - Gastro -esophageal reflux disease without esophagitis (5) Diabetes mellitus type II, controlled Current Visit: No Status: Chronic Qualifiers: Diabetes mellitus complication status: without complication Diabetes mellitus retirement insulin use: without retirement use Qualified Code(s): E11.9 - Type 2 diabetes mellitus without complications (6) CRISTIAN (acute kidney injury) Current Visit: Yes Status: Acute (7) Dehydration Current Visit: Yes Status: Resolved - Constitutional Vitals: Temp Pulse Resp BP Pulse Ox 98.1 F 77 18 96/78 98 08/31/17 15:52 08/31/17 15:52 08/31/17 15:52 08/31/17 15:52 08/31/17 15:52 Internal Medicine: Result - Labs CBC & Chem 7: 08/31/17 01:35 08/31/17 01:35 Labs: Short CBC 08/31/17 Range/Units 01:35 WBC 7.5 (4.3-11.1) K/mcL Hgb 12.5 D (11.5-15.4) g/dL Hct 38.6 (35.3-44.9) % Plt Count 212 (140-400) K/mcL Neutrophils # 3.6 (1.6-8.9) K/mcL BMP 08/31/17 01:35 Sodium 138 Potassium 4.4 Chloride 112 H Carbon Dioxide 17 L BUN 56 H Creatinine 1.91 H Glucose 87 Calcium 8.5 L D - ABG Interpretation ABG results: PT/INR, D-dimer D-Dimer 396 ng/mLFEU (0-500) 08/31/17 13:03 - Impressions Impressions Brain MRI 08/31/17 16:06 IMPRESSION: 1. No acute intracranial abnormality. 2. Sequela of mild chronic microvascular ischemic changes. 3. Unremarkable MRA of the head. D/ /31/2017 12:57:10 Robert Fay MD / Avis Dorado Interpreting Provider: Robert Fay MD Head MRA 08/31/17 16:06 IMPRESSION: 1. No acute intracranial abnormality. 2. Sequela of mild chronic microvascular ischemic changes. 3. Unremarkable MRA of the head. D/ /31/2017 12:57:10 Robert Fay MD / Avis Dorado Interpreting Provider: Robert Fay MD Neck MRA 08/31/17 21:01 IMPRESSION: Unremarkable MRA of the neck. D/ : / 08/31/2017 13:10:51 Robert Fay MD / earnold Interpreting Provider: Robert Fay MD Echocardiogram 08/31/17 21:23 Impressions: LVEF 60-65%. Normal left ventricular size and systolic function. There is evidence of mild diastolic dysfunction of the left ventricle. Normal right ventricular size and function. Mild tricuspid regurgitation. No pulmonary hypertension. Aneurysmal interatrial septum with positive bubble study suggesting the presence of a PFO. Left Ventricular Wall Motion: Rest Echo Findings All wall segments showed normal motion. Findings: Study Quality * Technically adequate exam. ECG Findings * Normal sinus rhythm. Left Ventricle * LVEF 60-65%. * Normal LV chamber size, wall thickness and function. * Mild left ventricular diastolic dysfunction. Right Ventricle * Normal right ventricular structure and function. Left Atrium * Normal left atrial size. Right Atrium * Normal right atrial size. Aortic Valve * No aortic regurgitation. * Trileaflet aortic valve. * Normal aortic valve structure. * No aortic stenosis. Mitral Valve * Normal mitral valve structure. * No mitral regurgitation. * No mitral stenosis. Tricuspid Valve * Tricuspid valve not well visualized. * Mild tricuspid regurgitation. * Estimated RA pressure is 3 mmHg. * Estimated RVSP is 26 mmHg. * No pulmonary hypertension. Pulmonic Valve * Pulmonic valve is not well visualized. * No pulmonic stenosis. * No pulmonic regurgitation. Pulmonary Artery * Pulmonary artery not well visualized. Aorta * Normally sized aortic root. Pericardium * There is no pericardial effusion present. Interatrial Septum * Aneurysmal interatrial septal. * There is a PFO by agitated saline contrast, IVC * Normal IVC dimensions and inspiratory collapse. - Attending Attestation I examined this patient and my medical decision-making was reviewed with the Resident Physician on 08/31/17. I agree with the documented findings, disposition and treatment plan as described except to the extent set forth below. Ms Gomes is currently admitted for acute dizziness and dyspnea. She remains moderate to high risk due to potential for worsening neuro status. Ms Gomes remains dizzy and nauseous at times. No CP. SOB with movement at times. No fever or chills. Exam Alert. Comfortable Mucus membranes dry Heart reg No wheeze Abd negative No edema I/P 1. Vestibular neuronitis 2. PFO Further diagnoses and plan as above.
--- NOTE | 2017-08-31 17:42 | Electrocardiograph Report ---
[place] [id number] Test Date: 2017-08-30 Pat Name: Yolanda Gomes Department: 104 Room: [facility] Gender: F Systems Management Consultant: HADLEY : 1950 Requested By: Carlos Pires Order Number: [id number] Reading MD: Candace Christianson Measurements Intervals [place] Rate: 102 P: 66 SD: 147 QRS: -11 QRSD: 96 T: 21 QT: 325 QTc: 384 Interpretive Statements SINUS TACHYCARDIA ABNORMAL RHYTHM ECG Electronically Signed On 08-31-2017 17:40:38 EDT by Candace Christianson
[2017-09-01 05:02] LABS: Basophils % 0.5 %; Eosinophils # 0.1 K/mcL (0.0-0.6); Eosinophils % 2.5 %; Hematocrit 32.3 % (35.3-44.9); Immature Granulocytes % 0.3 % (0-4); Lymphocytes # 1.9 K/mcL (0.6-4.6); Lymphocytes % 48.1 %; Mean Corpuscular HGB Conc 31.9 g/dL (31.6-35.5); Mean Corpuscular Volume 94.2 fL (83.0-100.0); Mean Platelet Volume 10.6 fL (9.4-12.4); Monocytes # 0.4 K/mcL (0.0-1.3); Monocytes % 9.8 %; Neutrophils # 1.6 K/mcL (1.6-8.9); Nucleated Red Blood Cells 0.5 /100 WBC (0); Platelet Count 181 K/mcL (140-400); Red Blood Count 3.43 M/mcL (3.82-4.97); Red Cell Distribution Width 12.9 % (11.5-14.5); Segmented Neutrophils % 38.8 %
[2017-09-01 05:09] LABS: Hemoglobin 10.3 g/dL (11.5-15.4)
[2017-09-01] MEDS: *HR* Heparin 5,000 UNIT/ML VIAL SQ SCH (05:12)
[2017-09-01 05:20] LABS: Potassium 4.6 mEq/L (3.5-4.5)
[2017-09-01 05:21] LABS: Calcium 8.4 mg/dL (8.6-10.8); Chol/HDL Ratio 5.5 (0-4.9)
[2017-09-01] MEDS ORDERED: NEXIUM 40 MG PO SCH (06:30)
[2017-09-01 07:01] VITALS: BP 143/58
[2017-09-01] MEDS: traMADol 50 MG TABLET PO PRN (07:55)
[2017-09-01] MEDS: Aspirin Enteric Coated 81 MG Tablet PO SCH (07:56)
[2017-09-01] MEDS: 0.9 % Sodium Chloride 1,000 ML IVC SCH (07:56)
--- NOTE | 2017-09-01 08:04 | Carotid Imaging Report ---
Carotid Duplex Patient Name:Yolanda Gomes Order Number:[id number] Procedure Date:08/31/2017 Date:1950ge:66 yrs Gender:Female Lt BP:142 / 68 mmHg Rt.BP:126 / 56 mmHgHeart Rate: Location:[facility] Room #: 2NE25 Unix Manager:Tano Cruz RN, RDCS Referring MD:Lui Leigh MD Reading MD:Steve Torre MD Primary Indications:Posterior Circulation Symptoms Risk Factors Yes/No Hypertension Yes Diabetes Yes Hypercholesterolemia Yes Smoker Previous No Hx of CVA Yes Anticoagulants No Hx of CAD/PTCA No Previous Vascular Surgery No Impressions: The right internal carotid artery has a 60-79% stenosis. The left internal carotid artery has a 60-79% stenosis. Recommendations: Risk factor reduction. Further evaluation recommended if clinically indicated. Follow-up carotid duplex in 6 months. Test completed on 08/31/2017 at 9:30:00 am. Findings Carotid Duplex: Right: The right proximal common carotid artery has a PSV of 149 cm/s and a EDV of 31 cm/s. The right mid common carotid artery has a PSV of 75 cm/s and a EDV of 20 cm/s. The right distal common carotid artery has a PSV of 88 cm/s and a EDV of 26 cm/s. There is nonstenotic plaque in the right bifurcation with a PSV of 85 cm/s and a EDV of 33 cm/s. There is nonstenotic plaque in the right proximal internal carotid artery with a PSV of 93 cm/s and a EDV of 32 cm/s. There is 40-59% stenosis in the right mid internal carotid artery with a PSV of 126 cm/s and a EDV of 50 cm/s. There is 60-79% stenosis in the right distal internal carotid artery with a PSV of 273 cm/s and a EDV of 85 cm/s. The right eca has a PSV of 84 cm/s and a EDV of 11 cm/s. The right vertebral artery has a PSV of 73 cm/s and a EDV of 24 cm/s. Left: The left proximal common carotid artery has a PSV of 135 cm/s and a EDV of 28 cm/s. The left mid common carotid artery has a PSV of 72 cm/s and a EDV of 14 cm/s. The left distal common carotid artery has a PSV of 72 cm/s and a EDV of 19 cm/s. There is nonstenotic plaque in the left bifurcation with a PSV of 68 cm/s and a EDV of 17 cm/s. There is 60-79% stenosis in the left proximal internal carotid artery with a PSV of 167 cm/s and a EDV of 59 cm/s. There is 40-59% stenosis in the left mid internal carotid artery with a PSV of 123 cm/s and a EDV of 40 cm/s. There is 60-79% stenosis in the left distal internal carotid artery with a PSV of 150 cm/s and a EDV of 48 cm/s. The left eca has a PSV of 110 cm/s and a EDV of 18 cm/s. The left vertebral artery has a PSV of 86 cm/s and a EDV of 25 cm/s. Prior Study: No prior study available for comparison. Carotid Results Right PSV EDV Assessment Proximal CCA 149 31 Normal Mid CCA 75 20 Normal Distal CCA 88 26 Normal Bifurcation 85 33 Non Stenotic Plaque Proximal ICA 93 32 Non Stenotic Plaque Mid ICA 126 50 40-59% stenosis Distal ICA 273 85 60-79% stenosis ECA 84 11 Normal Vertebral Artery 73 24 Normal Left PSV EDV Assessment Proximal CCA 135 28 Normal Mid CCA 72 14 Normal Distal CCA 72 19 Normal Bifurcation 68 17 Non Stenotic Plaque Proximal ICA 167 59 60-79% stenosis Mid ICA 123 40 40-59% stenosis Distal ICA 150 48 60-79% stenosis ECA 110 18 Normal Vertebral Artery 86 25 Normal Ratio's Right ICA/CCA Ratio: 3.64 ICA/CCA Values: 273/75 Left ICA/CCA Ratio: 2.32 ICA/CCA Values: 167/72 Updated by Steve Torre MD on 09/01/2017 7:59:50 AM electronically signed on 09/01/2017 8:00:01 AM with status of Final
--- NOTE | 2017-09-01 09:54 | Discharge Summary ---
<Giorgio Delgado - Last Filed: 09/01/17 11:40> Date of Encounter: 09/01/17 Time of Encounter: 09:10 - Discharge Diagnosis (1) Vestibular neuronitis Priority: Primary Status: Acute Comments: Vestibular neuronitis likely secondary to viral infection previously. Physical exam revealed horizontal nystagmus to the left and reproduce dizziness to the right MRI and MRA are negative for acute findings, echo showed mild diastolic dysfunction with incidental PFO Preliminary report for carotid duplex showed bilateral ICA 60-79% stenosis Neurology recommended symptomatic treatment for nausea and dizziness along with a prednisone taper Qualifiers: Laterality: right Qualified Code(s): H81.21 - Vestibular neuronitis, right ear (2) CRISTIAN (acute kidney injury) Priority: Secondary Status: Resolved Comments: CRISTIAN likely secondary to hypovolemia due to nausea and vomiting. Serum creatinine 1.2, BUN 32, GFR 45 Patient has returned to typical baseline Upon discharge the patient will be given medications to treat nausea and vomiting symptomatically to prevent hypovolemia (3) UTI (urinary tract infection) Priority: Primary Status: Acute Comments: Uncomplicated urinary tract infection due to Escherichia coli Microbiology from culture indicates Escherichia coli UTI The patient did not have urinary complaints at the time of admission, however she still does not have any urinary complaints The patient has been treated for 2 days with ceftriaxone, will completely total 5 day course with nitrofurantoin 100 mg twice a day Qualifiers: Urinary tract infection type: acute cystitis Hematuria presence: without hematuria Qualified Code(s): N30.00 - Acute cystitis without hematuria (4) DVT prophylaxis Priority: Secondary Status: Acute - Discharge Medications Prescriptions: Ondansetron ODT [Zofran ODT] 4 mg SL Q6HR PRN #30 tab.rapdis PRN Reason: Nausea Meclizine HCl [Verticalm] 25 mg PO BID #60 tablet Nitrofurantoin (BID) [Macrobid] 100 mg PO BID #6 capsule predniSONE [PredniSONE] 10 mg PO DAILY #21 tablet Home Medications: BuPROPion [Wellbutrin] 150 mg PO QAM 07/20/15 [History] Duloxetine [Cymbalta] 60 mg PO QAM 07/20/15 [History] Alendronate Sodium [Fosamax] 70 mg PO WE 12/08/15 [History] Cholecalciferol (Vitamin D3) [Vitamin D3] 1,000 unit PO QAM 12/08/15 [History] TraMADol [Ultram] 25 - 50 mg PO BID PRN 12/08/15 [History] Lisinopril [Zestril] 5 mg PO DAILY tablet 12/14/15 [Rx] Albuterol Sulfate [Albuterol Inhaler] 2 puff IH Q4HR PRN 05/29/16 [History] BuPROPion [Wellbutrin] 75 mg PO HS 05/29/16 [History] Cyanocobalamin (Vitamin B-12) [Vitamin B-12] 1,000 mcg SL DAILY 05/29/16 [ History] Dicyclomine [Bentyl] 20 mg PO QID 05/29/16 [History] Esomeprazole Magnesium 40 mg PO DAILY 05/29/16 [History] Ferrous Sulfate [Iron Supplement] 325 mg PO DAILY 05/29/16 [History] Fluticasone Propionate Nasal [Flonase] 1 spr NS DAILY PRN 05/29/16 [History] Lactobacillus Acidophilus [Acidophilus] 1 tab PO BID 05/29/16 [History] Lysine [l-Lysine] 500 mg PO DAILY 05/29/16 [History] Potassium Chloride [K-Tab ER] 20 meq PO DAILY 05/29/16 [History] Ondansetron ODT [Zofran ODT] 4 mg PO Q6H PRN #30 tab.rapdis 06/03/16 [Rx] Evolocumab [Repatha Pushtronex] 420 mg QMONTH 08/31/17 [History] Sucralfate [Carafate] 1 tab PO QID 08/31/17 [History] Aspirin Enteric Coated [Aspirin EC] 81 mg PO DAILY tablet. 09/01/17 [Rx] BuPROPion XL (24 HR) [Wellbutrin Xl] 150 mg PO DAILY tab.er.24h 09/01/17 [Rx] DULoxetine [Cymbalta] 60 mg PO DAILY capsule. 09/01/17 [Rx] Meclizine HCl [Verticalm] 25 mg PO BID #60 tablet 09/01/17 [Rx] Nitrofurantoin (BID) [Macrobid] 100 mg PO BID #6 capsule 09/01/17 [Rx] Ondansetron ODT [Zofran ODT] 4 mg SL Q6HR PRN #30 tab.rapdis 09/01/17 [Rx] predniSONE [PredniSONE] 10 mg PO DAILY #21 tablet 09/01/17 [Rx] Allergies/Adverse Reactions: 3 Allergy/AdvReac Type Severity Reaction Status Date / Time latex Allergy Rash Verified 08/31/17 10:43 levofloxacin [From Levaquin] Allergy Cramping Verified 08/31/17 10:43 of the Muscles meperidine [From Demerol] Allergy Hives Verified 08/31/17 10:43 Sulfa (Sulfonamide Allergy Rash Verified 08/31/17 10:43 Antibiotics) clarithromycin AdvReac Diarrhea Verified 08/31/17 10:43 ezetimibe [From Vytorin] AdvReac Diarrhea Verified 08/31/17 10:43 lansoprazole [From Prevacid] AdvReac Diarrhea Verified 08/31/17 10:43 mirtazapine AdvReac Diarrhea Verified 08/31/17 10:43 omeprazole [From Prilosec] AdvReac Diarrhea Verified 08/31/17 10:43 pantoprazole [From Protonix] AdvReac Diarrhea Verified 08/31/17 10:43 pravastatin AdvReac See Verified 08/31/17 10:43 Comments rosuvastatin [From Crestor] AdvReac See Verified 08/31/17 10:43 Comments simvastatin [From Vytorin] AdvReac Diarrhea Verified 08/31/17 10:43 Anti-Acid Medications AdvReac Diarrhea Uncoded 08/31/17 10:43 Procedures/tests Complete & Pending: Procedures Performed prior 72 hours Category Date Time Status EV carotid duplex imaging BI Routine Y 08/31/17 21:23 Completed EV echo with saline Routine Y 08/31/17 21:23 Completed Date of admission: 08/30/17 21:01 Primary care physician: Juno Mendes DO Consults: 08/31/17 12:49 Consult to Neurology [CONS] Routine Consulting Provider: Neurology [facility] Reason for Consult: Intractable dizziness Time Notified: 11:30 Call Completed: Yes Discharging clinician: Giorgio Delgado Anticipated date of discharge: 09/01/17 - Patient Status Disposition: Home, Self-Care Condition: Good Functional capacity at discharge: independent ambulation Overall status at discharge: patient is progressing back to baseline - Discharge Instructions Instructions: Urinary Tract Infection in Women (DC) Follow Up With: Juno Mendes DO [Primary Care Provider] - 09/08/17 2:00 pm Theresa Campos MD [Partnered Physician] - (i requested an appointment office should call patient at home with appoinmtent date and time) Additional Instructions: Follow up with primary care in one-two weeks. Follow up with neurology. For Urinary Tract Infection: Take Nitrofurantoin 100mg BID for 3 days starting the day after discharge For Dizziness: Take meclizine 25mg BID for one-two weeks, then take as needed for dizziness. For Nausea/Vomiting: Take Zofran subligual ever 4-6 hours as needed - Diet and Activity Activity: increase activity as tolerated Diet: advance to your usual diet Hospital course: Ms. Gomes is a 66 year old female with history of CVA, DVT, fibromyalgia, GERD, hyperlipidemia, hypertension, renal disease who presented to the ER with complaint of dizziness for 1-2 weeks' duration. She was having problems with unsteadiness, and she had to hold onto landers and boxes and ordered to ambulate. She says that she found that she was frequently weaning towards the right unintentionally. She has had nausea and vomiting that is associated with this dizziness. She says that she had a recent upper respiratory infection, which was treated with antibiotics and steroids. In the ER she received a CT of her head which was normal. As well as a chest x-ray and EKG which were unremarkable. She was also found to have an CRISTIAN with serum creatinine of 2.51 and glomerular filtration rate of 19, which was elevated well above baseline creatinine of 1.2. Finally, the patient was found to have a UTI on admission which would later be demonstrated to be caused by Escherichia coli bacteria. The patient was admitted for IV fluids and antibiotics, and neurology was consulted from the ED. Bilateral carotid duplex ultrasound was ordered and determined to have 60-79% stenosis bilaterally. MRI of the brain and MRA of the head and neck were unremarkable and did not demonstrate stenosis. The patient also received an echocardiogram which demonstrated no acute abnormalities. The patient gradually began to improve, and says that she is still having some dizziness with some nausea and vomiting however it has improved dramatically. Neurology suggested the diagnosis of vestibular neuronitis. Additionally, the patient's serum creatinine returned to baseline at 1.2 with a GFR of 45. The patient is medically cleared for discharge with oral antibiotics, steroid taper, symptomatic treatment for her neuronitis. - Time Spent with Patient Total time spent providing and/or coordinating discharge services: - Constitutional Vitals: Temp Pulse Resp BP Pulse Ox 97.5 F L 68 18 143/58 98 09/01/17 06:54 09/01/17 06:54 09/01/17 06:54 09/01/17 06:54 09/01/17 06:54 General appearance: Present: cooperative, A&O X 3, no acute distress, answers questions appropriately Exam: - Head Head exam: Present: atraumatic, normocephalic - Eye Eye exam: Present: PERRL, conjuntiva pink, sclera anicteric Pupils: Present: PERRL - Neck Neck exam general surgery: Present: supple, trachea midline. Absent: lymphadenopathy - Respiratory Respiratory exam: Present: CTAB. Absent: accessory muscle use, rales, rhonchi, wheezes - Cardiovascular Cardiovascular exam: Present: RRR, +S1, +S2. Absent: diastolic murmur, gallop, rubs, systolic murmur - GI/Abdominal GI/Abdominal exam: Present: normal bowel sounds, soft, no peritoneal signs. Absent: distended, tenderness - Extremities Exam Extremities exam: Present: warm, radial pulses palpable and symmetrical. Absent : calf tenderness, cyanotic, pedal edema - Neurological Exam Neurological exam: Present: CN II-XII intact, oriented X3, no focal deficits. Absent: pronater drift, facial droop, speech deficit <Erik Nur A - Last Filed: 09/01/17 17:34> Date of Encounter: 09/01/17 - Discharge Diagnosis (1) Vestibular neuronitis Status: Acute Qualifiers: Laterality: right Qualified Code(s): H81.21 - Vestibular neuronitis, right ear (2) UTI (urinary tract infection) Status: Acute Qualifiers: Urinary tract infection type: acute cystitis Hematuria presence: without hematuria Qualified Code(s): N30.00 - Acute cystitis without hematuria (3) Hypertension Priority: Secondary Status: Acute Qualifiers: Hypertension type: essential hypertension Qualified Code(s): I10 - Essential (primary) hypertension (4) GERD (gastroesophageal reflux disease) Priority: Secondary Status: Chronic Qualifiers: Esophagitis presence: without esophagitis Qualified Code(s): K21.9 - Gastro -esophageal reflux disease without esophagitis (5) Diabetes mellitus type II, controlled Priority: Secondary Status: Chronic Qualifiers: Diabetes mellitus complication status: without complication Diabetes mellitus termite helper insulin use: without [place] [facility] use Qualified Code(s): E11.9 - Type 2 diabetes mellitus without complications (6) CRISTIAN (acute kidney injury) Status: Resolved (7) Dehydration Priority: Secondary Status: Resolved Procedures/tests Complete & Pending: Procedures Performed prior 72 hours Category Date Time Status EV carotid duplex imaging BI Routine Y 08/31/17 21:23 Completed EV echo with saline Routine Y 08/31/17 21:23 Completed Date of admission: 08/30/17 21:01 Primary care physician: Juno Mendes DO Consults: 08/31/17 12:49 Consult to Neurology [CONS] Routine Consulting Provider: Neurology [facility] Reason for Consult: Intractable dizziness Time Notified: 11:30 Call Completed: Yes Hospital course: Ms. Gomes is a 66 year old female - Time Spent with Patient Total time spent providing and/or coordinating discharge services: 38min - Constitutional Vitals: Temp Pulse Resp BP Pulse Ox 97.5 F L 68 18 143/58 98 09/01/17 06:54 09/01/17 06:54 09/01/17 06:54 09/01/17 06:54 09/01/17 06:54 - Attending Attestation I examined this patient and my medical decision-making was reviewed with the Resident Physician on 09/01/17. I agree with the documented findings, disposition and treatment plan as described except to the extent set forth below. Ms Gomes has been admitted for acute dizziness related to vestibular neuronitis. She has improved quite a bit. She is afebrile with stable vitals. She is ready for discharge home. Exam Alert. Comfortable Mucus membranes moist Heart not tachy Lungs no wheeze Plan D/C home today Follow up with PCP. Follow with cardiology for PFO.
[2017-09-01] MEDS: BuPROPion XL (24 HR) 150 MG TABLET PO SCH ×2 (11:09→11:19)
[2017-09-01] MEDS ORDERED: [UNRECOGNIZED DRUG - OTHER] IM ONE (12:42)
[2017-09-01] MEDS ORDERED: FLUARIX QUAD 2017-18 36MOS UP/PF 0.5 ML SYRINGE IM ONE (13:30)
== END 2017-09-01 14:12 | disposition home or self-care (01) | DRG 149 ==
LOC: 2NENU 14:17 → EMEROO 14:17 → 2NENU 19:13
PROVIDERS: ADMIT Internal Medicine; ATTEND Internal Medicine

== ENCOUNTER 2017-09-30 10:13 | Observation (INO) ==
[2017-09-30] MEDS ORDERED: Ondansetron 4 MG/2 ML VIAL IVP ONE (10:44)
[2017-09-30] MEDS ORDERED: 0.9 % Sodium Chloride 1,000 ML IVC ONE ×2 (10:44→13:10)
[2017-09-30 10:53] LABS: Bilirubin,Urine Small (Negative); Blood,Urine Negative (Negative); Color,Urine Dark Yellow (Yellow); Glucose,Urine (UA) Normal (Normal); Ketones,Urine Negative (Negative); Leukocyte Esterase,Urine Small (Negative); Nitrite,Urine Negative (Negative); Protein,Urine 100 mg/dL (Neg-Trace); Specific Gravity,Urine 1.023 (1.010-1.025); Urobilinogen,Urine Normal (Normal)
[2017-09-30 10:54] LABS: Clarity,Urine Clear (Clear); Squamous Epithelial Cell,Urine Many per lpf (None-Few); WBC,Urine 15-30 per hpf (0-3)
[2017-09-30 10:57] LABS: Basophils # 0.1 K/mcL (0.0-0.2); Basophils % 0.6 %; Eosinophils # 0.3 K/mcL (0.0-0.6); Eosinophils % 2.5 %; Hematocrit 44.6 % (35.3-44.9); Hemoglobin 14.5 g/dL (11.5-15.4); Immature Granulocytes % 1.3 % (0-4); Lymphocytes # 2.8 K/mcL (0.6-4.6); Lymphocytes % 23.4 %; Mean Corpuscular HGB Conc 32.5 g/dL (31.6-35.5); Mean Corpuscular Hemoglobin 30.5 pg (28.0-33.3); Mean Corpuscular Volume 93.7 fL (83.0-100.0); Mean Platelet Volume 10.2 fL (9.4-12.4); Monocytes # 0.8 K/mcL (0.0-1.3); Monocytes % 6.7 %; Neutrophils # 7.7 K/mcL (1.6-8.9); Platelet Count 405 K/mcL (140-400); Red Blood Count 4.76 M/mcL (3.82-4.97); Red Cell Distribution Width 13.5 % (11.5-14.5); Segmented Neutrophils % 65.5 %
[2017-09-30 11:09] LABS: Hyaline Casts,Urine Moderate per lpf (None-Few)
[2017-09-30 11:10] LABS: Bacteria,Urine Many per hpf (None-Few); Renal Epithelial Cells,Urine Few per hpf (None-Few)
[2017-09-30 11:11] LABS: RBC,Urine 0-3 per hpf (0-3)
[2017-09-30 11:13] LABS: Bilirubin,Direct 0.1 mg/dL (0.0-0.5); Bilirubin,Indirect 0.2 mg/dL (0.0-1.2); Bilirubin,Total 0.3 mg/dL (0.2-1.2); Calcium 10.3 mg/dL (8.6-10.8); Globulin 3.9 g/dL (2.4-3.5); Potassium 3.8 mEq/L (3.5-4.5); Total Protein 7.9 g/dL (6.0-8.3)
[2017-09-30] MEDS ORDERED: *HR* HYDROmorphone (PF) 1 MG/ML SYRINGE IVP ONE (12:10)
[2017-09-30] MEDS ORDERED: *HR* Promethazine 25 MG/ML VIAL IVP ONE (12:11)
--- NOTE | 2017-09-30 12:53 | Emergency Department Note ---
Disposition Clinical Impression: CRISTIAN (acute kidney injury), Dizziness Nausea & vomiting Qualifiers: Vomiting type: unspecified Vomiting Intractability: intractable Qualified Code( s): R11.2 - Nausea with vomiting, unspecified Diarrhea Qualifiers: Diarrhea type: unspecified type Qualified Code(s): R19.7 - Diarrhea, unspecified Disposition: Admitted As Inpatient Condition: Good Referrals: Juno Mendes DO [Primary Care Provider] - General Adult HPI - General Chief complaint: ED Dizziness Stated complaint: Dizziness,dehydration,N/V/D Time Seen by Provider: 09/30/17 10:28 Source: patient Limitations: no limitations Nursing Notes Reviewed: Yes Vital Signs Reviewed: Yes - History of Present Illness HPI Narrative: Patient presents today for evaluation of dizziness associated nausea vomiting abdominal pain and diarrhea. She states that her dizziness has been evaluated by Dr. Campos, neurology and she has an appointment for an MRI scheduled on Thursday. The patient has been continuously dealing with dehydration as well as the above symptoms with a recent change from her regular nausea and vomiting to abdominal pain and diarrhea. On exam I am concerned for possible dehydration. Abdominal tenderness and diarrhea will be further investigated with CT scan. Her dizziness is otherwise unexplained. She does not have any focal deficits or other signs concerning for acute stroke. Patient does not have fever or vaginal discharge. Pain Scale: 6 - Related Data Home Medications Medication Instructions Recorded Confirmed BuPROPion [Wellbutrin] 150 mg PO QAM 07/20/15 09/30/17 Alendronate Sodium [Fosamax] 70 mg PO WE 12/08/15 09/30/17 Cholecalciferol (Vitamin D3) 1,000 unit PO QAM 12/08/15 09/30/17 [Vitamin D3] TraMADol [Ultram] 25 - 50 mg PO BID PRN 12/08/15 09/30/17 Albuterol Sulfate [Albuterol 2 puff IH Q4HR PRN 05/29/16 09/30/17 Inhaler] BuPROPion [Wellbutrin] 75 mg PO HS 05/29/16 09/30/17 Cyanocobalamin (Vitamin B-12) 1,000 mcg SL DAILY 05/29/16 09/30/17 [Vitamin B-12] Dicyclomine [Bentyl] 10 mg PO TID 05/29/16 09/30/17 Esomeprazole Magnesium 40 mg PO DAILY 05/29/16 09/30/17 Ferrous Sulfate [Iron Supplement] 325 mg PO DAILY 05/29/16 09/30/17 Fluticasone Propionate Nasal 1 spr NS DAILY PRN 05/29/16 09/30/17 [Flonase] Lactobacillus Acidophilus 1 tab PO BID 05/29/16 09/30/17 [Acidophilus] Lysine [l-Lysine] 500 mg PO DAILY 05/29/16 09/30/17 Potassium Chloride [K-Tab ER] 20 meq PO DAILY 05/29/16 09/30/17 Evolocumab [Repatha Pushtronex] 420 mg QMONTH 08/31/17 09/30/17 Sucralfate [Carafate] 1 tab PO QID 08/31/17 09/30/17 Calcitriol [Rocaltrol] 0.25 mcg PO DAILY 09/30/17 09/30/17 Previous Rx's Medication Instructions Recorded Lisinopril [Zestril] 5 mg PO DAILY tablet 12/14/15 Aspirin Enteric Coated [Aspirin EC] 81 mg PO DAILY tablet. 09/01/17 DULoxetine [Cymbalta] 60 mg PO DAILY capsule. 09/01/17 Meclizine HCl [Verticalm] 25 mg PO BID #60 tablet 09/01/17 Allergies Allergy/AdvReac Type Severity Reaction Status Date / Time latex Allergy Rash Verified 09/30/17 10:18 levofloxacin [From Levaquin] Allergy Cramping Verified 09/30/17 10:18 of the Muscles meperidine [From Demerol] Allergy Hives Verified 09/30/17 10:18 Sulfa (Sulfonamide Allergy Rash Verified 09/30/17 10:18 Antibiotics) clarithromycin AdvReac Diarrhea Verified 09/30/17 10:18 ezetimibe [From Vytorin] AdvReac Diarrhea Verified 09/30/17 10:18 lansoprazole [From Prevacid] AdvReac Diarrhea Verified 09/30/17 10:18 mirtazapine AdvReac Diarrhea Verified 09/30/17 10:18 omeprazole [From Prilosec] AdvReac Diarrhea Verified 09/30/17 10:18 pantoprazole [From Protonix] AdvReac Diarrhea Verified 09/30/17 10:18 pravastatin AdvReac See Verified 09/30/17 10:18 Comments rosuvastatin [From Crestor] AdvReac See Verified 09/30/17 10:18 Comments simvastatin [From Vytorin] AdvReac Diarrhea Verified 09/30/17 10:18 Anti-Acid Medications AdvReac Diarrhea Uncoded 09/30/17 10:18 Review of Systems: REVIEW OF SYSTEMS: GENERAL: Weight loss over the last several months ~No fever or chills. HEENT: ~No headache or blurred vision. CARDIOPULMONARY: ~No chest pain, palpitations or shortness of breath. GASTROINTESTINAL: Abdominal pain, nausea, vomiting GENITOURINARY: ~No dysuria or pyuria. ENDOCRINE: ~No goiter, lethargy or heat/cold intolerance. HEMATOLOGY/ONCOLOGY: ~No pallor, bruising or bleeding. MUSCULOSKELETAL: ~No change in strength. No swelling. NEUROLOGIC: Dizziness ~No headache or loss of consciousness. PSYCHIATRIC: ~No change in personality, affect or depression. Past Medical History - Past Medical History Medical history: Reports: arthritis, CVA, DVT, fibromyalgia, GERD, hyperlipidemia, hypertension, renal disease, other Surgical history: Reports: appendectomy, cholecystectomy, hysterectomy, sinus surgery, other Psychiatric history: Reports: anxiety, depression HOUSING ASSISTANT history: Reports: no HOUSING ASSISTANT history - Social History Smoking Status: Never smoker Smokeless Tobacco Status: No Alcohol use: Reports: occasionally Drug use: Reports: none Physical Exam General: Patient nauseous with vomiting and again hand. Patient with worsening nausea and dizziness upon sitting up.. Head: Normocephalic Atraumatic Eyes: PERRL, EOMI ENT: Airway patent, no stridor Neck: supple, no meningismus Chest: Lungs clear to auscultation bilateral Cardiac: Regular rate and rhythm, no murmurs, rubs or gallops Abdomen: soft, tenderness to the suprapubic region, nondistended; no guarding, rebound, Musculoskeletal: Calves symmetric, nontender, no palpable cord Skin: No rash, normal skin tone Neuro: Alert and Oriented to person, place, and time; No focal deficit, - General Limitations: no limitations General appearance: alert, in no apparent distress Course - Reevaluation(s) Reevaluation #1: Patient's blood work concerning for acute kidney injury. Patient does have questionable urine for possible UTI. Culture ordered. 1 g of ceftriaxone given in the emergency department. Repeat doses of nausea medicine including Zofran and Reglan provided. Patient's symptoms mildly improved. Patient was brought to the hospitalists for further evaluation. - Consultations Consultation #1: Dr. Leigh accepts. Vital Signs Temperature 97.4 F L 09/30/17 10:15 Pulse Rate 98 09/30/17 10:15 Respiratory Rate 16 09/30/17 10:15 Blood Pressure 93/68 09/30/17 10:15 O2 Sat by Pulse Oximetry 92 09/30/17 10:15 Temperature 97.7 F 09/30/17 12:13 Pulse Rate 91 09/30/17 13:24 Respiratory Rate 19 09/30/17 13:24 Blood Pressure 135/77 09/30/17 13:24 O2 Sat by Pulse Oximetry 95 09/30/17 13:24 Oxygen Delivery Oxygen Delivery Room Air Medical Decision Making - Lab Data Result diagrams: 09/30/17 10:47 09/30/17 10:47 Lab Results 09/30/17 09/30/17 09/30/17 Range/Units 10:25 10:47 10:47 WBC 11.8 H (4.3-11.1) K/mcL RBC 4.76 (3.82-4.97) M/mcL Hgb 14.5 (11.5-15.4) g/dL Hct 44.6 (35.3-44.9) % MCV 93.7 (83.0-100.0) fL MCH 30.5 (28.0-33.3) pg MCHC 32.5 (31.6-35.5) g/dL RDW 13.5 (11.5-14.5) % Plt Count 405 H (140-400) K/mcL MPV 10.2 (9.4-12.4) fL Immature Gran % 1.3 (0-4) % Seg Neutrophils % 65.5 % Lymphocytes % 23.4 % Monocytes % 6.7 % Eosinophils % 2.5 % Basophils % 0.6 % Neutrophils # 7.7 (1.6-8.9) K/mcL Lymphocytes # 2.8 (0.6-4.6) K/mcL Monocytes # 0.8 (0.0-1.3) K/mcL Eosinophils # 0.3 (0.0-0.6) K/mcL Basophils # 0.1 (0.0-0.2) K/mcL Sodium 138 (136-145) mEq/L Potassium 3.8 (3.5-4.5) mEq/L Chloride 107 (98-109) mEq/L Carbon Dioxide 16 L (19-29) mEq/L BUN 42 H (7-20) mg/dL Creatinine 2.24 H (0.57-1.11) mg/dL Est GFR ( Amer) 27 L (> 60) Est GFR (Non-Af Amer) 22 L (> 60) BUN/Creatinine Ratio 19 (6-26) Glucose 140 H (70-99) mg/dL Calculated Osmolality 299 (280-300) Calcium 10.3 (8.6-10.8) mg/dL Total Bilirubin 0.3 (0.2-1.2) mg/dL Direct Bilirubin 0.1 (0.0-0.5) mg/dL Indirect Bilirubin 0.2 (0.0-1.2) mg/dL AST 17 (5-34) Units/L ALT 19 (0-55) Units/L Alkaline Phosphatase 103 (38-126) Units/L Troponin I (0-0.03) ng/mL Serum Total Protein 7.9 (6.0-8.3) g/dL Albumin 4.0 (3.5-5.0) g/dL Globulin 3.9 H (2.4-3.5) g/dL Albumin/Globulin Ratio 1.0 L (1.1-2.2) Lipase 37 (8-78) Units/L Urine Color Dark Yellow (Yellow) Urine Clarity Clear (Clear) Urine pH 5.0 (5.0-8.0) pH Units Ur Specific [place] 1.023 (1.010-1.025) Urine Protein 100 H (Neg-Trace) mg/dL Urine Glucose (UA) Normal (Normal) mg/dL Urine Ketones Negative (Negative) mg/dL Urine Blood Negative (Negative) Urine Nitrite Negative (Negative) Urine Bilirubin Small H (Negative) Urine Urobilinogen Normal (Normal) mg/dL Ur Leukocyte Esterase Small H (Negative) Urine Microscopic RBC 0-3 (0-3) per hpf Urine Microscopic WBC 15-30 H (0-3) per hpf Ur Squamous Epith Cells Many H (None-Few) per lpf Ur Renal Epithelial Cell Few (None-Few) per hpf Urine Bacteria Many H (None-Few) per hpf Hyaline Casts Moderate H (None-Few) per lpf Urine Yeast Test Not Performed Ur Culture Indicated? YES A (NO) 09/30/17 Range/Units 10:47 WBC (4.3-11.1) K/mcL RBC (3.82-4.97) M/mcL Hgb (11.5-15.4) g/dL Hct (35.3-44.9) % MCV (83.0-100.0) fL MCH (28.0-33.3) pg MCHC (31.6-35.5) g/dL RDW (11.5-14.5) % Plt Count (140-400) K/mcL MPV (9.4-12.4) fL Immature Gran % (0-4) % Seg Neutrophils % % Lymphocytes % % Monocytes % % Eosinophils % % Basophils % % Neutrophils # (1.6-8.9) K/mcL Lymphocytes # (0.6-4.6) K/mcL Monocytes # (0.0-1.3) K/mcL Eosinophils # (0.0-0.6) K/mcL Basophils # (0.0-0.2) K/mcL Sodium (136-145) mEq/L Potassium (3.5-4.5) mEq/L Chloride (98-109) mEq/L Carbon Dioxide (19-29) mEq/L BUN (7-20) mg/dL Creatinine (0.57-1.11) mg/dL Est GFR ( Amer) (> 60) Est GFR (Non-Af Amer) (> 60) BUN/Creatinine Ratio (6-26) Glucose (70-99) mg/dL Calculated Osmolality (280-300) Calcium (8.6-10.8) mg/dL Total Bilirubin (0.2-1.2) mg/dL Direct Bilirubin (0.0-0.5) mg/dL Indirect Bilirubin (0.0-1.2) mg/dL AST (5-34) Units/L ALT (0-55) Units/L Alkaline Phosphatase (38-126) Units/L Troponin I 0.00 (0-0.03) ng/mL Serum Total Protein (6.0-8.3) g/dL Albumin (3.5-5.0) g/dL Globulin (2.4-3.5) g/dL Albumin/Globulin Ratio (1.1-2.2) Lipase (8-78) Units/L Urine Color (Yellow) Urine Clarity (Clear) Urine pH (5.0-8.0) pH Units Ur Specific [place] (1.010-1.025) Urine Protein (Neg-Trace) mg/dL Urine Glucose (UA) (Normal) mg/dL Urine Ketones (Negative) mg/dL Urine Blood (Negative) Urine Nitrite (Negative) Urine Bilirubin (Negative) Urine Urobilinogen (Normal) mg/dL Ur Leukocyte Esterase (Negative) Urine Microscopic RBC (0-3) per hpf Urine Microscopic WBC (0-3) per hpf Ur Squamous Epith Cells (None-Few) per lpf Ur Renal Epithelial Cell (None-Few) per hpf Urine Bacteria (None-Few) per hpf Hyaline Casts (None-Few) per lpf Urine Yeast Ur Culture Indicated? (NO) Attestation Statement - Attestation Attestation: I examined this patient and my medical decision-making was reviewed with the Resident Physician. I agree with the documented findings, disposition and treatment plan as described except to the extent set forth below. Patient to ED complaining of vomiting abdominal pain dizziness. Patient states she has been having these episodes for over a month. She was seen here previously and admitted to the hospital. Her workup was negative at that time. She is following with neurology who has an MRI ordered for Thursday. They are looking for a pinched nerve in her neck. She states she keeps vomiting and cannot keep anything down. Concerned because she has baseline renal failure. On examination she has dry mucous membranes. Abdomen soft but diffusely tender. Plan. The patient has acute on chronic renal failure. Creatinine is greater than 2. IV hydration and admission. CT abdomen unremarkable. Tolerating ice chips at this time.
[2017-09-30] MEDS ORDERED: *HR* Promethazine 25 MG/ML VIAL IVP PRN (13:34)
[2017-09-30] MEDS ORDERED: Naloxone 0.4 MG/ML INJ IVP PRN (13:34)
[2017-09-30] MEDS ORDERED: (Alendronate Sodium [Fosamax] 70 MG) PO SCH (13:45)
[2017-09-30] MEDS ORDERED: cefTRIAXone 1,000 MG in Water for inj. (sterile) 10 ML IVP ONE (14:00)
--- NOTE | 2017-09-30 14:25 | Event Note ---
Date of Encounter: 09/30/17 Time of Encounter: 14:23 Patient seen and examined with nurse practitioner. Patient presents with a month history of nausea vomiting and diarrhea since discharge from the hospital earlier this month. Patient lost 10 pounds. Patient has acute kidney injury non- anion gap Acidosis related to diarrhea. Will hydrate the patient will start the patient on iv flagyl. Check stool for C diff. Questionable UTI. Patient does not have symptoms. Will check your culture, hold off antibiotics for now.
--- NOTE | 2017-09-30 14:46 | Internal Med History&Physical ---
Date of Encounter: 09/30/17 Time of Encounter: 14:41 Assessment and Plan (1) Dizziness Current visit: Yes Status: Acute 1 month history of nausea vomiting diarrhea. Was dehydrated and hypotensive on arrival, received a 2 L fluid bolus. Greater than 1 month history of dizziness. On 08/31 MRI of head and MRA of head and neck were completed and found to be negative. Has undergone a cardiac workup for the most part was unremarkable. The only abnormal findings were echocardiogram indicating a PFO. Continues to have dizziness exacerbated by activity with associated hypoxia. Dizziness may be caused by orthostasis Orthostatic vital signs Continuous telemetry PT/OT consult 0.9% normal saline at 125 mL per hour CBC and CMP in the morning (2) Btbly-am-[id number] kidney injury Current visit: Yes Status: Acute AKA secondary to one month history of nausea vomiting and diarrhea. Patient reports she has poor oral intake, creatinine elevated from baseline at 2.24. She is followed by Dr. Lockett from nephrology. Non-anion gap acidosis was noted likely related to the diarrhea. Received a 2 L fluid bolus in the ED 0.9% normal saline at 125 mL per hour CMP in the morning Hold Nephrotoxic agents Qualifiers: Acute renal failure type: unspecified Chronic kidney disease stage: stage 3 (moderate) Qualified Code(s): N17.9 - Acute kidney failure, unspecified; N18.3 - Chronic kidney disease, stage 3 (moderate); N18.3 - Chronic kidney disease, stage 3 (moderate) (3) Nausea, vomiting and diarrhea Current visit: Yes Status: Acute Nausea vomiting diarrhea for greater than 1 month. Patient notes nausea vomiting exacerbated by dizziness with activity. She reports that she has been having diarrhea after she eats. Due to recent antibiotic use we will check stool for C. difficile. Zofran and Phenergan IVP for nausea and vomiting. Continue to rehydrate patient, see plan above (4) Dehydration Current visit: Yes Status: Acute Secondary to 1 month history of nausea vomiting and diarrhea. See plan above (5) UTI (urinary tract infection) Current visit: Yes Status: Suspected Likely colonized. History of frequent UTIs recently treated while inpatient. Awaiting results of urine cultures, we will hold off on antibiotic therapy for now Qualifiers: Urinary tract infection type: acute cystitis Qualified Code(s): N30.00 - Acute cystitis without hematuria (6) DVT prophylaxis Current visit: Yes Status: Acute Lovenox subcutaneous 40 mg daily Internal Medicine - H&P: HPI Chief complaint: Dizziness, nausea vomiting and diarrhea Admitted From: Home Plans for Post Hospital Care: Home History of present illness: Ms. Gomes is a 66 year old female with a PMH of arthritis, CVA, DVT, GERD, fibromyalgia, HLD, HTN, stage III renal disease, anxiety and depression. Additionally has appendectomy, cholecystectomy and hysterectomy. She presents today to [facility] for a one-month history of dizziness, nausea vomiting diarrhea and CRISTIAN. She reports that she began feeling dizzy approximately one month ago and was admitted to the hospital and worked up from a neurological and cardiac standpoint with all results negative. She reports that the dizziness worsens with ambulation, that she becomes hypoxic with her fingers and lips turning blue, and that the dizziness and hypoxia improves with rest. She additionally reports nausea, vomiting and diarrhea intermittently throughout the last month. She states that she is unable to eat due to vomiting and she has lost weight. She notes that the nausea and vomiting exacerbated by the dizziness with activity. She is being seen by , neurology and has an MRI of the C-spine scheduled for Thursday to rule out cervicogenic cause. MRA head, MRA head/neck from 08/[address] of abdomen and pelvis today reveals no acute abdominopelvic process. Troponin negative, metabolic panel shows AK I with creatinine of 2.24. Past Med Surg Social Fam HX - Past Medical History Medical history: arthritis, CVA, DVT, fibromyalgia, GERD, hyperlipidemia, hypertension, renal disease, other Psychiatric history: anxiety, depression - Past Surgical History Surgical History: appendectomy, cholecystectomy, hysterectomy, sinus surgery, other - Social History Smoking Status: Never smoker Smokeless Tobacco Status: No Alcohol use: occasionally Drug use: none - Family History Mother Family Member Ethnicity: Non- Living Status: Hx Family Cardiac Disorders: Yes Hx Family Respiratory Disorders: Yes Hx Family Cancer: No Hx Family GI Disorders: No Hx Family Endocrine Disorder: No Hx Family Neuromuscular Disorders: No Hx Family Neurologic Disorders: No Hx Family Autoimmune Disorders: No Internal Medicine - H&P: Meds BuPROPion [Wellbutrin] 150 mg PO QAM 07/20/15 [History] Alendronate Sodium [Fosamax] 70 mg PO WE 12/08/15 [History] Cholecalciferol (Vitamin D3) [Vitamin D3] 1,000 unit PO QAM 12/08/15 [History] TraMADol [Ultram] 25 - 50 mg PO BID PRN 12/08/15 [History] Lisinopril [Zestril] 5 mg PO DAILY tablet 12/14/15 [Rx] Albuterol Sulfate [Albuterol Inhaler] 2 puff IH Q4HR PRN 05/29/16 [History] BuPROPion [Wellbutrin] 75 mg PO HS 05/29/16 [History] Cyanocobalamin (Vitamin B-12) [Vitamin B-12] 1,000 mcg SL DAILY 05/29/16 [ History] Dicyclomine [Bentyl] 10 mg PO TID 05/29/16 [History] Esomeprazole Magnesium 40 mg PO DAILY 05/29/16 [History] Ferrous Sulfate [Iron Supplement] 325 mg PO DAILY 05/29/16 [History] Fluticasone Propionate Nasal [Flonase] 1 spr NS DAILY PRN 05/29/16 [History] Lactobacillus Acidophilus [Acidophilus] 1 tab PO BID 05/29/16 [History] Lysine [l-Lysine] 500 mg PO DAILY 05/29/16 [History] Potassium Chloride [K-Tab ER] 20 meq PO DAILY 05/29/16 [History] Evolocumab [Repatha Pushtronex] 420 mg QMONTH 08/31/17 [History] Sucralfate [Carafate] 1 tab PO QID 08/31/17 [History] Aspirin Enteric Coated [Aspirin EC] 81 mg PO DAILY tablet. 09/01/17 [Rx] DULoxetine [Cymbalta] 60 mg PO DAILY capsule. 09/01/17 [Rx] Meclizine HCl [Verticalm] 25 mg PO BID #60 tablet 09/01/17 [Rx] Calcitriol [Rocaltrol] 0.25 mcg PO DAILY 09/30/17 [History] 3 Allergy/AdvReac Type Severity Reaction Status Date / Time latex Allergy Rash Verified 09/30/17 10:18 levofloxacin [From Levaquin] Allergy Cramping Verified 09/30/17 10:18 of the Muscles meperidine [From Demerol] Allergy Hives Verified 09/30/17 10:18 Sulfa (Sulfonamide Allergy Rash Verified 09/30/17 10:18 Antibiotics) clarithromycin AdvReac Diarrhea Verified 09/30/17 10:18 ezetimibe [From Vytorin] AdvReac Diarrhea Verified 09/30/17 10:18 lansoprazole [From Prevacid] AdvReac Diarrhea Verified 09/30/17 10:18 mirtazapine AdvReac Diarrhea Verified 09/30/17 10:18 omeprazole [From Prilosec] AdvReac Diarrhea Verified 09/30/17 10:18 pantoprazole [From Protonix] AdvReac Diarrhea Verified 09/30/17 10:18 pravastatin AdvReac See Verified 09/30/17 10:18 Comments rosuvastatin [From Crestor] AdvReac See Verified 09/30/17 10:18 Comments simvastatin [From Vytorin] AdvReac Diarrhea Verified 09/30/17 10:18 Anti-Acid Medications AdvReac Diarrhea Uncoded 09/30/17 10:18 All Systems PM: A 10-system review of systems was performed and is negative for pertinent findings except as documented above in the HPI. - Constitutional Constitutional: excessive sweating, no chills, no fever(s), no night sweats - EENT Eyes: no blurry vision, no change in vision, no loss of peripheral vision, no loss of vision Nose, mouth and throat: dry mouth - Cardiovascular Cardiovascular ROS IM: as per HPI, dyspnea on exertion, no chest pain, no diaphoresis, no dyspnea, no edema, no irregular heart rhythm, no lightheadedness , no palpitations, no paroxysmal nocturnal dyspnea, no syncope - Respiratory Respiratory: as per HPI, dyspnea on exertion, no cough, no dyspnea, no hemoptysis, no wheezing, no stridor, no pain on inspiration, no chest congestion , no excessive phlegm production, no pain with cough - Gastrointestinal Gastrointestinal: abdominal pain, diarrhea, nausea, vomiting, no coffee ground emesis, no hematemesis, no hematochezia, no melena - Genitourinary Genitourinary: no change in urinary stream, no dysuria, no flank pain, no hematuria - Musculoskeletal Musculoskeletal ROS IM: no numbness, no tingling - Integumentary Integumentary IM: no rash, no unusual bruising - Neurological Neurological ROS: dizziness, no abnormal gait, no abnormal speech, no focal weakness, no frequent falls, no headache(s), no lack of coordination, no loss of vision, no numbness, no tingling, no weakness - Constitutional Vitals: Temp Pulse Resp BP Pulse Ox 97.7 F 91 19 135/77 95 09/30/17 12:13 09/30/17 13:24 09/30/17 13:24 09/30/17 13:24 09/30/17 13:24 General appearance: Present: cooperative, A&O X 3, no acute distress, answers questions appropriately - Head Head exam: Present: atraumatic, normocephalic - Eye Eye exam: Present: EOMI, PERRL, conjuntiva pink, sclera anicteric Pupils: Present: PERRL - Neck Neck exam general surgery: Present: normal inspection, supple, trachea midline. Absent: lymphadenopathy, tenderness, nuchal rigidity, thyromegaly - Respiratory Respiratory exam: Present: CTAB. Absent: accessory muscle use, rales, respiratory distress, rhonchi, wheezes, tachypnea - Cardiovascular Cardiovascular exam: Present: RRR, +S1, +S2. Absent: bradycardia, diastolic murmur, gallop, rubs, systolic murmur, tachycardia - GI/Abdominal GI/Abdominal exam: Present: normal bowel sounds, soft, no peritoneal signs. Absent: distended, tenderness - Extremities Exam Extremities exam: Present: warm, radial pulses palpable and symmetrical. Absent : calf tenderness, cyanotic, pedal edema - Neurological Exam Neurological exam: Present: CN II-XII intact, oriented X3, no focal deficits. Absent: pronater drift, facial droop, speech deficit - Skin Skin exam: Present: dry, intact Internal Med - H&P Results - Labs CBC & Chem 7: 09/30/17 10:47 09/30/17 10:47 - EKG Data -: EKG Interpreted by Myself EKG shows normal: sinus rhythm Rate: normal - EKG Data When compared to previous EKG: there is no significant change - Diagnostic Studies CT scan - abdomen Status: image reviewed by me Additional comments: No acute abdominopelvic process
[2017-09-30 15:18] LABS: Thyroid Stimulating Hormone 5.955 mcIU/mL (0.350-4.840)
[2017-09-30] MEDS: Sucralfate 1 GM TABLET PO SCH ×2 (16:02→20:15)
[2017-09-30] MEDS: 0.9 % Sodium Chloride 1,000 ML IVC SCH (17:26)
[2017-09-30] MEDS: traMADol 50 MG TABLET PO PRN (17:27)
[2017-09-30] MEDS: *HR* Heparin 5,000 UNIT/ML VIAL SQ SCH (17:28)
[2017-09-30] MEDS: MetroNIDAZOLE 500 MG/100 ML 500 MG/100 ML BAG IVPB SCH (17:28)
--- NOTE | 2017-09-30 17:39 | Electrocardiograph Report ---
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
[2017-09-30] MEDS: Ondansetron 4 MG/2 ML VIAL IVP PRN (20:15)
[2017-09-30] MEDS: Lactobacillus 1 EACH CAP.SPRINK PO SCH (20:15)
[2017-10-01] MEDS: MetroNIDAZOLE 500 MG/100 ML 500 MG/100 ML BAG IVPB SCH (00:39)
[2017-10-01] MEDS: 0.9 % Sodium Chloride 1,000 ML IVC SCH ×2 (03:06→08:57)
[2017-10-01] MEDS: traMADol 50 MG TABLET PO PRN ×2 (04:14→09:07)
[2017-10-01] MEDS: Ondansetron 4 MG/2 ML VIAL IVP PRN ×2 (04:15→15:24)
[2017-10-01] MEDS: *HR* Heparin 5,000 UNIT/ML VIAL SQ SCH (04:17)
[2017-10-01 04:55] LABS: Basophils % 0.4 %; Eosinophils # 0.2 K/mcL (0.0-0.6); Eosinophils % 2.5 %; Hematocrit 32.9 % (35.3-44.9); Hemoglobin 10.8 g/dL (11.5-15.4); Immature Granulocytes % 0.6 % (0-4); Lymphocytes # 2.7 K/mcL (0.6-4.6); Lymphocytes % 34.6 %; Mean Corpuscular HGB Conc 32.8 g/dL (31.6-35.5); Mean Corpuscular Volume 94.5 fL (83.0-100.0); Mean Platelet Volume 10.4 fL (9.4-12.4); Monocytes # 0.5 K/mcL (0.0-1.3); Monocytes % 6.2 %; Neutrophils # 4.3 K/mcL (1.6-8.9); Platelet Count 262 K/mcL (140-400); Red Blood Count 3.48 M/mcL (3.82-4.97); Red Cell Distribution Width 13.7 % (11.5-14.5); Segmented Neutrophils % 55.7 %
[2017-10-01] MEDS ORDERED: *HR* Enoxaparin 30 MG/0.3 ML SYRINGE SQ SCH (06:00)
[2017-10-01] MEDS ORDERED: Sucralfate 1 GM TABLET PO SCH (08:15)
[2017-10-01] MEDS ORDERED: Cyanocobalamin (B-12) 1,000 MCG TABLET PO SCH (09:00)
[2017-10-01] MEDS ORDERED: Cholecalciferol (D-3) 1,000 UNIT TABLET PO SCH (09:00)
[2017-10-01] MEDS ORDERED: Aspirin Enteric Coated 81 MG Tablet PO SCH (09:00)
[2017-10-01] MEDS ORDERED: (Lysine [L-Lysine] 500 MG) PO SCH (09:00)
[2017-10-01 09:04] LABS: Albumin 2.9 g/dL (3.5-5.0); Albumin/Globulin Ratio 1.1 (1.1-2.2); Bilirubin,Total 0.2 mg/dL (0.2-1.2); Globulin 2.7 g/dL (2.4-3.5); Magnesium 1.4 mg/dL (1.6-2.6); Phosphorous 2.6 mg/dL (2.3-4.7); Potassium 4.1 mEq/L (3.5-4.5); Total Protein 5.6 g/dL (6.0-8.3)
[2017-10-01] MEDS: Lactobacillus 1 EACH CAP.SPRINK PO SCH (09:04)
--- NOTE | 2017-10-01 14:58 | Discharge Summary ---
Date of Encounter: 10/01/17 Time of Encounter: 14:56 - Discharge Diagnosis (1) Dizziness Priority: Primary Status: Acute (2) Nausea, vomiting and diarrhea Priority: Secondary Status: Acute (3) CRISTIAN (acute kidney injury) Priority: Secondary Status: Resolved (4) Chronic kidney disease, stage III (moderate) Priority: Secondary Status: Chronic (5) UTI (urinary tract infection) Priority: Secondary Status: Ruled-out Qualifiers: Urinary tract infection type: acute cystitis Hematuria presence: without hematuria Qualified Code(s): N30.00 - Acute cystitis without hematuria (6) Vestibular neuronitis Priority: Secondary Status: Acute Qualifiers: Laterality: right Qualified Code(s): H81.21 - Vestibular neuronitis, right ear (7) DVT prophylaxis Priority: Secondary Status: Acute - Discharge Medications Prescriptions: Ondansetron ODT [Zofran ODT] 4 mg SL Q4HR PRN #30 tab.rapdis PRN Reason: Nausea Loperamide HCl [Imodium A-D] 2 mg PO QID PRN #30 capsule PRN Reason: Diarrhea Home Medications: BuPROPion [Wellbutrin] 150 mg PO QAM 07/20/15 [History] Alendronate Sodium [Fosamax] 70 mg PO WE 12/08/15 [History] Cholecalciferol (Vitamin D3) [Vitamin D3] 1,000 unit PO QAM 12/08/15 [History] TraMADol [Ultram] 25 - 50 mg PO BID PRN 12/08/15 [History] Lisinopril [Zestril] 5 mg PO DAILY tablet 12/14/15 [Rx] Albuterol Sulfate [Albuterol Inhaler] 2 puff IH Q4HR PRN 05/29/16 [History] BuPROPion [Wellbutrin] 75 mg PO HS 05/29/16 [History] Cyanocobalamin (Vitamin B-12) [Vitamin B-12] 1,000 mcg SL DAILY 05/29/16 [ History] Dicyclomine [Bentyl] 10 mg PO TID 05/29/16 [History] Esomeprazole Magnesium 40 mg PO DAILY 05/29/16 [History] Ferrous Sulfate [Iron Supplement] 325 mg PO DAILY 05/29/16 [History] Fluticasone Propionate Nasal [Flonase] 1 spr NS DAILY PRN 05/29/16 [History] Lactobacillus Acidophilus [Acidophilus] 1 tab PO BID 05/29/16 [History] Lysine [l-Lysine] 500 mg PO DAILY 05/29/16 [History] Potassium Chloride [K-Tab ER] 20 meq PO DAILY 05/29/16 [History] Evolocumab [Repatha Pushtronex] 420 mg QMONTH 08/31/17 [History] Sucralfate [Carafate] 1 tab PO QID 08/31/17 [History] Aspirin Enteric Coated [Aspirin EC] 81 mg PO DAILY tablet. 09/01/17 [Rx] DULoxetine [Cymbalta] 60 mg PO DAILY capsule. 09/01/17 [Rx] Meclizine HCl [Verticalm] 25 mg PO BID #60 tablet 09/01/17 [Rx] Calcitriol [Rocaltrol] 0.25 mcg PO DAILY 09/30/17 [History] Loperamide HCl [Imodium A-D] 2 mg PO QID PRN #30 capsule 10/01/17 [Rx] Ondansetron ODT [Zofran ODT] 4 mg SL Q4HR PRN #30 tab.rapdis 10/01/17 [Rx] Allergies/Adverse Reactions: 3 Allergy/AdvReac Type Severity Reaction Status Date / Time latex Allergy Rash Verified 09/30/17 10:18 levofloxacin [From Levaquin] Allergy Cramping Verified 09/30/17 10:18 of the Muscles meperidine [From Demerol] Allergy Hives Verified 09/30/17 10:18 Sulfa (Sulfonamide Allergy Rash Verified 09/30/17 10:18 Antibiotics) clarithromycin AdvReac Diarrhea Verified 09/30/17 10:18 ezetimibe [From Vytorin] AdvReac Diarrhea Verified 09/30/17 10:18 lansoprazole [From Prevacid] AdvReac Diarrhea Verified 09/30/17 10:18 mirtazapine AdvReac Diarrhea Verified 09/30/17 10:18 omeprazole [From Prilosec] AdvReac Diarrhea Verified 09/30/17 10:18 pantoprazole [From Protonix] AdvReac Diarrhea Verified 09/30/17 10:18 pravastatin AdvReac See Verified 09/30/17 10:18 Comments rosuvastatin [From Crestor] AdvReac See Verified 09/30/17 10:18 Comments simvastatin [From Vytorin] AdvReac Diarrhea Verified 09/30/17 10:18 Anti-Acid Medications AdvReac Diarrhea Uncoded 09/30/17 10:18 Date of admission: 09/30/17 13:17 Primary care physician: Juno Mendes DO Consults: 09/30/17 13:36 Consult to Occupational Therapy [CONS] Routine Comment: Evaluate, develop and implement POC Reason for Consult: Dizziness greater than 1 month Consult to Physical Therapy [CONS] Routine Comment: Evaluate, develop and implement POC Reason for Consult: Dizziness greater than 1 month 09/30/17 14:45 Consult to Nutrition [CONS] Routine Comment: Consulting Provider: NUTRITION Reason for Dietary Consult: MST Score 10/01/17 08:05 Consult to Human Services Instructor [CONS] Routine Reason for SW Consult: DIscharge planning Discharging clinician: Blake Breen Anticipated date of discharge: 10/01/17 - Patient Status Disposition: Home, Self-Care Condition: Good Functional capacity at discharge: independent ambulation Overall status at discharge: patient is progressing back to baseline - Discharge Instructions Follow Up With: Juno Mendes DO [Primary Care Provider] - 10/05/17 8:45 am (in 1-2 weeks) Lynne Alamo DO [Non-Partnered Physician] - 10/08/17 1:30 pm (Within 1 week for vertigo/ vestibular neuronitis) - Diet and Activity Activity: increase activity as tolerated Diet: low fat, low cholesterol, low salt diet Hospital course: Ms. Gomes is a 66 year old female patient with history of chronic kidney disease, prior DVT, fibromyalgia, hypertension and hyperlipidemia who presented to the ER with complaints of dizziness and hypoxia with symptoms of bluish discoloration of her fingers and lips with ambulation. She was also having nausea and vomiting along with diarrhea which had been going on for one month. No clear etiology had been identified. On presentation to the ER, she had acute kidney injury with a creatinine of 2.24 which is above her baseline of 1.2 -1.3. Patient was treated with IV fluids with improvement in her symptoms. She has been evaluated by physical therapy today and was recommended no further physical therapy needs. He should not had previously been diagnosed with vestibular neuronitis and is following up outpatient with neurology. She is scheduled for a cervical MRI for possible cervical myelopathy. I discussed her case with neurology and they did not recommend any further workup at this time. They did recommend referral to ENT for further evaluation and management of her vestibular disorder which is causing her dizziness. Patient has not been hypoxic here. She is currently stable for discharge home. Her creatinine levels are improving and close to her baseline. Her diarrhea has improved. Stool was negative for C. difficile. Patient does take Repatha can cause gastroenteritis and nausea. This could be causing her symptoms. She can follow up further with her primary care provider. She did have slightly elevated TSH level but her free T4 levels were normal. Her initial urinalysis suggested possible UTI but her urine culture was negative. As such she has not been placed on any antibiotics. She is feeling much better now and is stable for discharge home. She will follow up with her neurology and ENT for further management of her dizziness/ vertigo. - Time Spent with Patient Total time spent providing and/or coordinating discharge services: Greater than 30 minutes (32 min) - Constitutional Vitals: Temp Pulse Resp BP Pulse Ox 97.7 F 71 17 121/84 100 10/01/17 10:40 10/01/17 10:57 10/01/17 10:57 10/01/17 10:57 10/01/17 10:57 General appearance: Present: cooperative, A&O X 3, no acute distress, answers questions appropriately - Respiratory Respiratory exam: Present: CTAB. Absent: accessory muscle use, rales, rhonchi, wheezes - Cardiovascular Cardiovascular exam: Present: RRR, +S1, +S2. Absent: diastolic murmur, gallop, rubs, systolic murmur - GI/Abdominal GI/Abdominal exam: Present: normal bowel sounds, soft, no peritoneal signs. Absent: distended, tenderness - Extremities Exam Extremities exam: Present: warm, radial pulses palpable and symmetrical. Absent : calf tenderness, cyanotic, pedal edema
[2017-10-01 16:17] VITALS: BP 115/74
[2017-10-02] MEDS ORDERED: NEXIUM PO SCH ×2 (09:00)
== END 2017-10-01 17:29 | disposition home or self-care (01) ==
LOC: EMEROO 10:13 → 3ANU 10:13
PROVIDERS: ADMIT Nurse Practitioner; ATTEND Internal Medicine